=== PATIENT | female | born 1945 | race Caucasian/White ===

== ENCOUNTER 2018-11-27 23:33 | Inpatient (IN) ==
--- NOTE | 2018-11-28 01:54 | DR.GENAD ---
HPI Time Seen Time Seen by Provider: 11/28/18 01:53 PCP Primary Care Physician: SAMUEL HPI Comment HPI Comment: PATIENT IS 72YR OLD PATIENT OF DR. BUCHANAN IN IS IN EMERGENCY ROOM FOR AMS AND INCREASING SOB. PATIENT HAVE HISTORY OF COPD, FIBROMYALGIA AND HY PERTENSION ON CHRONIC PAIN MANAGEMENT AND STARTED HOSPICE PROGRAM THIS PAST THUSDAY. CAME TO ED TONIGHT LEAVING HOSPICE FOR MANAGEMENT OF AMS AND COPD. SHE IS ALSO NOTED TO HAVE LICE IN HER HAIR. SHE DENIED FEVER. HAVE COUGH, NON PRODUCTVE. FAMILY STATED PATIENT IS UNABLE TO CARE FOR HERSELF. SHE WAS CONFUSE TODAY BEFORE COMING TO ED. Complaint/Symptoms Chief Complaint Doctors Comments: AMS, SOB. 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 AND SHE WANTS IT THAT WAY. Self Treatment fo Chief Complaint: PT NOTED TO BE POOR IN APPEARANCE AND CAN VISIBLY SEE LARGE LICE CRAWLING AROUND IN HAIR Nurses notes reviewed Nurses Notes Review: Yes Source History Provided: Patient Mode of Arrival Mode of Arrival: Wheelchair Timing Onset of Chief Complaint: 11/27/18 Came on: Suddenly Duration Duration: Constant Duration: Weeks Severity Severity: Moderate PMH PMH Past Medical History: Yes Past Medical History: COPD and Hypertension Past Surgical History: Yes Surgical History: Appendectomy, Cholecystectomy and Hysterectomy Family History History of Family Medical Conditions: No Social History Does patient currently use any type of tobacco product: Yes Have you used tobacco products in the last 12 months: Yes Type of Tobacco Use: Cigarettes Does any household member use tobacco: No Alcohol Use: None Do you use any recreational Drugs:: No Lives With: Alone Lives Where: Home infectious screening In the last 2 months have you had wt loss of >10#?: NO Have you had fever, night sweats or hemotysis?: No Have you traveled outside the country in the last 6 months?: No Isolation: Standard ROS Review of Systems Constitutional: No Symptoms Reported, See HPI, Weakness and Fatigue; negative Chills, Fever and Malaise Eyes: See HPI; negative Eye Pain ENTM: Nose Congestion; negative Nose Discharge and Throat Pain Respiratoy: See HPI, Non-Productive Cough, Short of Breath and Wheezing Cardiovascular: See HPI and Chest Pain; negative Edema and Palpitations Gastrointestinal/Abdominal: See HPI; negative Abdominal Pain, Constipation, Diarrhea, Nausea and Vomiting Genitourinary: See HPI; negative Dysuria, Hematuria and Bleeding Neurological: See HPI, Headache and Weakness; negative Dizziness Musculoskeletal: See HPI, Back Pain and Muscle Pain; negative Neck Pain Integumentary: See HPI, Dryness and Rash; negative Change in Color and Juandice Hematologic/Lymphatic: No Symptoms Reported and See HPI; negative Easy Bruising, Swollen Glands and Lymphadenopathy Endocrine: See HPI and Decreased Appetite; negative Increased Thirst and Increased Urine Psychiatric: No Symptoms Reported and See HPI; negative Hallucinations All Other Systems: Reviewed and Negative Unable to Obtain Due To: Altered mental status PE Vital Signs Vitals: Temperature 98.0 F Pulse Rate [Left Brachial] 72 Pulse Rate 86 Respiratory Rate 16 Blood Pressure [Left Arm] 160/95 Blood Pressure 159/95 O2 Sat by Pulse Oximetry 97 General Limitations: Altered Mental Status General Appearance: Alert and In Distress Head Head Exam: Normal Inspection, Atraumatic and Other (LICE NOTED IN PATIENTS HAIR.) Eyes Eye exam: Normal Appearance, PERRL and EOMI; negative Scleral Icterus and Conjunctival Injection ENT ENT Exam: negative Normal Oropharynx, Normal External Ear Exam and Mucous Membranes Moist External Ear Exam: Normal External Inspection; negative Mastoid Tenderness, Pain with Movement and External Tenderness TM/Canal Exam: Bilateral: Normal Nose Exam: Normal Nose Exam; negative Sinus Tenderness, Nasal Deviation and Septal Hematoma Mouth Exam: Normal Inspection; negative Lip Swelling and Tongue Swelling Throat Exam: Normal Inspection; negative Tonsillar Erythema, Tonsillomegaly and Tonsillar Exudate Neck Neck Exam: Normal Inspection and Trachea Midline; negative Tenderness and Lymphadenopathy Chest Chest Inspection: Normal Inspection and Symmetric Chest Wall Rise; negative Tenderness Respiratory Respiratory Exam: Accessory Muscle Use and Respiratory Distress; negative Chest Wall Tenderness Respiratory Exam: Bilateral: Wheezing and Bilateral: Rhonchi, Upper: Wheezing and Lower: Wheezing and Lower: Rhonchi Cardiovascular Cardiovascular Exam: Regular Rate, Normal Rhythm and Normal Heart Sounds; negative Tachycardia and Irregular Rhythm Abdominal Exam Abdominal Exam: Normal Bowel Sounds, Soft and Tenderness Extremities Extremities Exam: Normal Inspection Back Back Exam: Paraspinal Tenderness; negative Tenderness and (L) CVA Tenderness Neurologic Neurological Exam: Alert and Oriented X3 Psychiatric Psychiatric Exam: Normal Affect and Normal Mood Skin Skin Exam: Warm, Dry, Intact and Normal Color MDM Additional Information Additional Information Obtained From: Old Records (REVIEWED RECORD FROM [facility] IN [place].) and Family Differential Diagnosis Differential Diagnosis: AMS. PNEUMONIA, BRONCHITIS, UTI, FIBROMYALGIA, COPD, LICE INFESTATION COURSE Treatment Treatment: SEE ORDERS. Consultation Consultation Comments: DISCUSS PATIENT WITH DR. ASHRAF. HE WILL ADMIT PATIENT. Education/Counseling Education/Counseling: Patient and Family Educated On: Diagnosis ROR Labs Reviewed Laboratory Results Reviewed?: Yes Result Diagrams: 11/28/18 02:38 11/28/18 02:38 Laboratory: WBC 4.6 X10^3/uL (3.6-10.0) 11/28/18 02:38 RBC 4.15 X10^6/uL (3.5-5.4) 11/28/18 02:38 Hgb 13.8 g/dL (12.0-16.0) 11/28/18 02:38 Hct 40.2 % (36.0-47.0) 11/28/18 02:38 MCV 96.9 fL (80.0-100.0) 11/28/18 02:38 MCH 33.3 pg (27.0-34.0) 11/28/18 02:38 MCHC 34.4 g/dL (33.0-35.0) 11/28/18 02:38 RDW 13.4 % (11.6-16.5) 11/28/18 02:38 Plt Count 323 X10^3/uL (150.0-450.0) 11/28/18 02:38 MPV 6.9 fL (7.4-11.0) L 11/28/18 02:38 Neut % (Auto) 69.7 % (42.0-75.0) 11/28/18 02:38 Lymph % (Auto) 17.9 % (21.0-51.0) L 11/28/18 02:38 [place] % (Auto) 8.1 % (0.0-13.0) 11/28/18 02:38 Eos % (Auto) 2.6 % (0.9-2.9) 11/28/18 02:38 Baso % (Auto) 1.7 % (0.2-1.0) H 11/28/18 02:38 Neut # (Auto) 3.2 x10^3/uL (2.2-4.8) 11/28/18 02:38 Lymph # (Auto) 0.8 X10^3/uL (1.3-2.9) L 11/28/18 02:38 [place] # (Auto) 0.4 x10^3/uL (0.3-0.8) 11/28/18 02:38 Eos # (Auto) 0.1 x10^3/uL (0.0-0.2) 11/28/18 02:38 Baso # (Auto) 0.1 X10^3/uL (0.0-0.1) 11/28/18 02:38 Absolute Nucleated RBC 0.2 /100WBC 11/28/18 02:38 Sodium 134 mmol/L (136-145) L 11/28/18 02:38 Corrected Sodium TNP 11/28/18 02:38 Potassium 3.9 mmol/L (3.5-5.1) 11/28/18 02:38 Chloride 96 mmol/L (98-107) L 11/28/18 02:38 Carbon Dioxide 26.4 mmol/L (21-32) 11/28/18 02:38 BUN 25 mg/dL (7-18) H 11/28/18 02:38 Creatinine 0.76 mg/dL (0.55-1.02) 11/28/18 02:38 Est GFR (MDRD) Af Amer > 60 (>60) 11/28/18 02:38 Est GFR (MDRD) Non-Af > 60 (>60) 11/28/18 02:38 Glucose 86 mg/dL (65-99) 11/28/18 02:38 Calcium 9.8 mg/dL (8.5-10.1) 11/28/18 02:38 Corrected Calcium TNP 11/28/18 02:38 Total Bilirubin 0.50 mg/dL (0.2-1.0) 11/28/18 02:38 AST 23 Units/L (15-37) 11/28/18 02:38 ALT 18 Units/L (12-78) 11/28/18 02:38 Alkaline Phosphatase 106 Units/L (46-116) 11/28/18 02:38 Creatine Kinase 119 Units/L (26-192) 11/28/18 02:38 CK-MB (CK-2) 5.5 ng/mL (0-4.0) H* 11/28/18 02:38 CK/CKMB % Calc 4.6 % (<4) 11/28/18 02:38 Troponin I < 0.02 ng/mL (0-1.5) 11/28/18 02:38 Total Protein 8.3 g/dL (6.4-8.2) H 11/28/18 02:38 Albumin 4.0 g/dL (3.4-5.0) 11/28/18 02:38 Globulin 4.3 g/dL (2.5-4.5) 11/28/18 02:38 Albumin/Globulin Ratio 0.9 Ratio (1.1-2.1) L 11/28/18 02:38 Specimen Type Clean catch urine 11/28/18 02:46 Urine Color Dark yellow (YELLOW) 11/28/18 02:46 Urine Appearance Clear (CLEAR) 11/28/18 02:46 Urine pH 5.0 (5.0 - 8.0) 11/28/18 02:46 Ur Specific [place] 1.025 (1.000-1.030) 11/28/18 02:46 Urine Protein 3+ (NEGATIVE) 11/28/18 02:46 Urine Glucose (UA) Negative (NEGATIVE) 11/28/18 02:46 Urine Ketones 3+ (NEGATIVE) 11/28/18 02:46 Urine Occult Blood 1+ (NEGATIVE) 11/28/18 02:46 Urine Nitrite Negative (NEGATIVE) 11/28/18 02:46 Urine Bilirubin Negative (NEGATIVE) 11/28/18 02:46 Urine Urobilinogen Normal (NORMAL) 11/28/18 02:46 Ur Leukocyte Esterase Negative (NEGATIVE) 11/28/18 02:46 Urine RBC 0-2 /HPF (NONE SEEN) 11/28/18 02:46 Urine WBC 0-2 /HPF (NONE SEEN) 11/28/18 02:46 Ur Squamous Epith Cells Rare /HPF (NEGATIVE) 11/28/18 02:46 Urine Bacteria Negative /HPF (NEGATIVE) 11/28/18 02:46 Hyaline Casts Few /LPF (NEGATIVE) 11/28/18 02:46 Urine Mucus Few /HPF (NEGATIVE) 11/28/18 02:46 Ur Culture Indicated? No/not indicated 11/28/18 02:46 XRAY XRAY Interpreted by: Radiologist XRAY Findings: REPORT NOTED AND DISCUSS WITH PATIENT AND FAMILY. Opioid Opioid Risk Tool Total: 0 Total Score Risk Category: Low Risk Copyright: Aniceto LEWIS predicting aberrant behaviors Diagnosis Discharge Problem: COPD exacerbation, Lice infestation Altered mental status Qualifiers: Altered mental status type: transient alteration of awareness Qualified Code(s): R40.4 - Transient alteration of awareness Instructions Forms: Excuse From Work
[2018-11-28 02:51] LABS: BASOPHILS # (AUTO) 0.1 X10^3/uL (0.0-0.1); BASOPHILS % (AUTO) 1.7 % (0.2-1.0); EOSINOPHILS # (AUTO) 0.1 x10^3/uL (0.0-0.2); EOSINOPHILS % (AUTO) 2.6 % (0.9-2.9); HEMATOCRIT 40.2 % (36.0-47.0); HEMOGLOBIN 13.8 g/dL (12.0-16.0); LYMPHOCYTES # (AUTO) 0.8 X10^3/uL (1.3-2.9); LYMPHOCYTES % (AUTO) 17.9 % (21.0-51.0); MEAN CORPUSCULAR HEMOGLOBIN 33.3 pg (27.0-34.0); MEAN CORPUSCULAR HGB CONC 34.4 g/dL (33.0-35.0); MEAN CORPUSCULAR VOLUME 96.9 fL (80.0-100.0); MEAN PLATELET VOLUME 6.9 fL (7.4-11.0); MONOCYTES # (AUTO) 0.4 x10^3/uL (0.3-0.8); MONOCYTES % (AUTO) 8.1 % (0.0-13.0); NEUTROPHILS # (AUTO) 3.2 x10^3/uL (2.2-4.8); NEUTROPHILS % (AUTO) 69.7 % (42.0-75.0); PLATELET COUNT 323 X10^3/uL (150.0-450.0); RED BLOOD COUNT 4.15 X10^6/uL (3.5-5.4); RED CELL DISTRIBUTION WIDTH 13.4 % (11.6-16.5); WHITE BLOOD COUNT 4.6 X10^3/uL (3.6-10.0)
[2018-11-28 02:52] LABS: BILIRUBIN,URINE NEGATIVE (NEGATIVE); BLOOD/HEMOGLOBIN,URINE 1+ (NEGATIVE); GLUCOSE, URINE NEGATIVE (NEGATIVE); KETONES,URINE 3+ (NEGATIVE); LEUKOCYTE ESTERASE ,URINE NEGATIVE (NEGATIVE); NITRITES,URINE NEGATIVE (NEGATIVE); PROTEIN,URINE 3+ (NEGATIVE); UROBILINOGEN,URINE NORMAL (NORMAL)
[2018-11-28 03:01] LABS: ALANINE AMINOTRANSFERASE 18 Units/L (12-78); ALKALINE PHOSPHATASE 106 Units/L (46-116); ASPARTATE AMINO TRANSFERASE 23 Units/L (15-37); BLOOD UREA NITROGEN 25 mg/dL (7-18); CALCIUM 9.8 mg/dL (8.5-10.1); CARBON DIOXIDE 26.4 mmol/L (21-32); CHLORIDE 96 mmol/L (98-107); CREATININE 0.76 mg/dL (0.55-1.02); SODIUM 134 mmol/L (136-145); TOTAL PROTEIN 8.3 g/dL (6.4-8.2); eGFR NON BLACK RACES > 60 (>60)
[2018-11-28 03:02] LABS: APPEARANCE,URINE CLEAR (CLEAR); BACTERIA,URINE NEGATIVE /HPF (NEGATIVE); COLOR,URINE DARK YELLOW (YELLOW); HYALINE CASTS, URINE FEW /LPF (NEGATIVE); MUCUS,URINE FEW /HPF (NEGATIVE); RBC,URINE 0-2 /HPF (NONE SEEN); SQUAMOUS EPITHELIAL CELL,UR RARE /HPF (NEGATIVE)
--- NOTE | 2018-11-28 03:08 | CT ---
HISTORY: Altered mental status Study: CT brain without contrast Comparison: None available Technique: Multiple axial images of the brain were obtained from the skull base to the vertex without administration of IV contrast. Coronal and sagittal reformations are obtained. Findings: There is age-appropriate cerebral atrophy. Moderate multifocal areas of hypoattenuation throughout the periventricular and subcortical white matter are compatible with small vessel ischemic disease. This limits evaluation for acute ischemic infarct, though no definite acute infarct is identified. There is no acute intracranial hemorrhage. No extra-axial fluid collection is identified. Calvarium and extracalvarial soft tissues are within normal limits. Orbits are unremarkable. Skull base is unremarkable. IMPRESSION: Age-appropriate cerebral atrophy and moderate chronic small vessel ischemic disease. Microangiopathy changes limit evaluation for acute ischemic infarct. If there is clinical concern for stroke, consider MRI for more sensitive assessment. No acute intracranial hemorrhage. Reported By:
[2018-11-28 04:18] LABS: CKMB % 4.6 % (<4); CREATINE KINASE 119 Units/L (26-192); TROPONIN I < 0.02 ng/mL (0-1.5)
[2018-11-28 04:19] LABS: CREATINE KINASE MB 5.5 ng/mL (0-4.0)
--- NOTE | 2018-11-28 07:56 | RAD ---
HISTORY: Dyspnea Study: Chest AP portable Comparison: None Findings: The heart is within normal limits in size. The aorta is mildly ectatic. The nicolasa are normal. The lungs are well inflated and free of acute infiltrates. No pleural effusions are identified. The bony thorax is unremarkable. IMPRESSION: Lungs clear Reported By:
[2018-11-28] MEDS: NIX CREME RINSE EXT SCH (09:30)
[2018-11-28] MEDS ORDERED: NORCO 10/325 TAB PO PRN (11:39)
[2018-11-28] MEDS ORDERED: DUONEB 0.5 MG/3 MG IN PRN (11:39)
[2018-11-28] MEDS: NS 1000 ML 1,000 ML IV SCH ×2 (12:00→23:29)
[2018-11-28] MEDS: XANAX PO SCH (12:00)
[2018-11-28] MEDS ORDERED: PHENERGAN TAB 25 MG PO PRN (12:17)
[2018-11-28 12:18] LABS: CKMB % 4.3 % (<4); CREATINE KINASE 112 Units/L (26-192); TROPONIN I < 0.02 ng/mL (0-1.5)
[2018-11-28] MEDS: DUONEB 0.5 MG/3 MG NEB SCH ×2 (12:20→18:30)
[2018-11-28 12:23] LABS: CREATINE KINASE MB 4.8 ng/mL (0-4.0)
[2018-11-28] MEDS: MOBIC TAB 15 MG PO SCH (12:48)
[2018-11-28] MEDS: SYNTHROID 75 mcg TAB PO SCH (12:48)
[2018-11-28] MEDS: FLEXERIL TAB 10 MG PO SCH ×2 (12:48→20:57)
[2018-11-28] MEDS: NEURONTIN CAP 400 MG PO SCH ×4 (12:49→20:57)
[2018-11-28] MEDS: ELAVIL PO SCH (12:49)
--- NOTE | 2018-11-28 13:05 | RAD ---
HISTORY: Abdomen pain. Prior history of appendectomy, cholecystectomy and hysterectomy. Study: KUB Comparison: No priors Findings: There is large amount of stool present extending from the cecum to the mid descending colon. No significant rectosigmoid stool is present. Very slight increase in small bowel gas is present dense bowel obstruction. There are surgical clips present in the left pelvis. There is moderate degenerative change and scoliosis involving the lumbar spine no opaque stone is seen. Lung bases are clear. No acute osseous changes are identified. IMPRESSION: Right colon stool and mild small bowel ileus pattern. No bowel obstruction is seen. Reported By:
[2018-11-28] MEDS ORDERED: SALINE 3% 15 ML NEB TX NEB ONE (15:16)
[2018-11-28 17:27] LABS: CKMB % 3.3 % (<4); CREATINE KINASE 115 Units/L (26-192); CREATINE KINASE MB 3.8 ng/mL (0-4.0); TROPONIN I < 0.02 ng/mL (0-1.5)
[2018-11-29] MEDS: DUONEB 0.5 MG/3 MG NEB SCH ×5 (01:09→18:26)
[2018-11-29 05:47] LABS: BASOPHILS # (AUTO) 0.1 X10^3/uL (0.0-0.1); BASOPHILS % (AUTO) 1.4 % (0.2-1.0); EOSINOPHILS # (AUTO) 0.3 x10^3/uL (0.0-0.2); EOSINOPHILS % (AUTO) 4.7 % (0.9-2.9); HEMATOCRIT 35.6 % (36.0-47.0); HEMOGLOBIN 12.3 g/dL (12.0-16.0); LYMPHOCYTES # (AUTO) 1.6 X10^3/uL (1.3-2.9); LYMPHOCYTES % (AUTO) 25.1 % (21.0-51.0); MEAN CORPUSCULAR HEMOGLOBIN 33.8 pg (27.0-34.0); MEAN CORPUSCULAR HGB CONC 34.4 g/dL (33.0-35.0); MEAN PLATELET VOLUME 7.3 fL (7.4-11.0); MONOCYTES # (AUTO) 0.6 x10^3/uL (0.3-0.8); MONOCYTES % (AUTO) 9.5 % (0.0-13.0); NEUTROPHILS # (AUTO) 3.8 x10^3/uL (2.2-4.8); NEUTROPHILS % (AUTO) 59.3 % (42.0-75.0); PLATELET COUNT 299 X10^3/uL (150.0-450.0); RED BLOOD COUNT 3.63 X10^6/uL (3.5-5.4); RED CELL DISTRIBUTION WIDTH 13.9 % (11.6-16.5); WHITE BLOOD COUNT 6.4 X10^3/uL (3.6-10.0)
[2018-11-29 06:05] LABS: ALANINE AMINOTRANSFERASE 15 Units/L (12-78); ALBUMIN 3.3 g/dL (3.4-5.0); ALKALINE PHOSPHATASE 83 Units/L (46-116); ASPARTATE AMINO TRANSFERASE 22 Units/L (15-37); BLOOD UREA NITROGEN 25 mg/dL (7-18); CALCIUM 8.6 mg/dL (8.5-10.1); CARBON DIOXIDE 26.1 mmol/L (21-32); CHLORIDE 103 mmol/L (98-107); COR CA(FOR HYPOALB) 9.2 mg/dL (8.5-10.1); CREATININE 0.91 mg/dL (0.55-1.02); SODIUM 139 mmol/L (136-145); TOTAL PROTEIN 6.8 g/dL (6.4-8.2); eGFR NON BLACK RACES > 60 (>60)
[2018-11-29] MEDS ORDERED: PHARMACY CONSULT - DOSE _____ XX SCH (09:00)
[2018-11-29] MEDS: SYNTHROID 75 mcg TAB PO SCH (09:20)
[2018-11-29] MEDS: XANAX PO SCH (09:20)
[2018-11-29] MEDS: ELAVIL PO SCH (09:20)
[2018-11-29] MEDS: MOBIC TAB 15 MG PO SCH (09:20)
[2018-11-29] MEDS: NEURONTIN CAP 400 MG PO SCH ×4 (09:20→21:11)
[2018-11-29] MEDS: FLEXERIL TAB 10 MG PO SCH ×2 (09:21→21:11)
[2018-11-29] MEDS: NIX CREME RINSE EXT SCH (17:48)
[2018-11-30] MEDS: DUONEB 0.5 MG/3 MG NEB SCH ×4 (00:25→18:11)
[2018-11-30 07:30] VITALS: BMI 19.8
[2018-11-30] MEDS: NEURONTIN CAP 400 MG PO SCH ×4 (08:35→21:40)
[2018-11-30] MEDS: SYNTHROID 75 mcg TAB PO SCH (08:39)
[2018-11-30] MEDS: XANAX PO SCH (08:40)
[2018-11-30] MEDS: LINZESS PO SCH (08:40)
[2018-11-30] MEDS: MOBIC TAB 15 MG PO SCH (08:40)
[2018-11-30] MEDS: ELAVIL PO SCH (08:40)
[2018-11-30] MEDS: FLEXERIL TAB 10 MG PO SCH (08:40)
[2018-11-30] MEDS ORDERED: SYNTHROID 50 mcg TAB PO ONE (10:51)
[2018-11-30] MEDS: NIX CREME RINSE EXT SCH (11:47)
[2018-11-30] MEDS: NS 1000 ML 1,000 ML IV SCH (11:47)
[2018-11-30] MEDS: COLACE CAP 100 MG PO SCH ×2 (12:00→21:41)
[2018-11-30] MEDS: NORCO 10/325 TAB PO PRN (21:40)
[2018-12-01] MEDS: DUONEB 0.5 MG/3 MG NEB SCH ×4 (00:45→17:53)
[2018-12-01] MEDS: NS 1000 ML 1,000 ML IV SCH ×3 (03:59→16:19)
[2018-12-01 05:45] LABS: BASOPHILS # (AUTO) 0.1 X10^3/uL (0.0-0.1); BASOPHILS % (AUTO) 2.1 % (0.2-1.0); EOSINOPHILS # (AUTO) 0.7 x10^3/uL (0.0-0.2); EOSINOPHILS % (AUTO) 13.5 % (0.9-2.9); HEMATOCRIT 29.9 % (36.0-47.0); LYMPHOCYTES # (AUTO) 1.5 X10^3/uL (1.3-2.9); LYMPHOCYTES % (AUTO) 28.4 % (21.0-51.0); MEAN CORPUSCULAR HEMOGLOBIN 33.9 pg (27.0-34.0); MEAN CORPUSCULAR HGB CONC 34.4 g/dL (33.0-35.0); MEAN CORPUSCULAR VOLUME 98.6 fL (80.0-100.0); MEAN PLATELET VOLUME 7.1 fL (7.4-11.0); MONOCYTES # (AUTO) 0.5 x10^3/uL (0.3-0.8); MONOCYTES % (AUTO) 9.1 % (0.0-13.0); NEUTROPHILS # (AUTO) 2.5 x10^3/uL (2.2-4.8); NEUTROPHILS % (AUTO) 46.9 % (42.0-75.0); PLATELET COUNT 235 X10^3/uL (150.0-450.0); RED BLOOD COUNT 3.03 X10^6/uL (3.5-5.4); RED CELL DISTRIBUTION WIDTH 13.5 % (11.6-16.5); WHITE BLOOD COUNT 5.4 X10^3/uL (3.6-10.0)
[2018-12-01 05:52] LABS: HEMOGLOBIN 10.3 g/dL (12.0-16.0)
[2018-12-01 06:10] LABS: ALANINE AMINOTRANSFERASE 14 Units/L (12-78); ALBUMIN 2.7 g/dL (3.4-5.0); ALKALINE PHOSPHATASE 72 Units/L (46-116); ASPARTATE AMINO TRANSFERASE 15 Units/L (15-37); BLOOD UREA NITROGEN 11 mg/dL (7-18); CALCIUM 7.9 mg/dL (8.5-10.1); CARBON DIOXIDE 26.3 mmol/L (21-32); CHLORIDE 106 mmol/L (98-107); COR CA(FOR HYPOALB) 8.9 mg/dL (8.5-10.1); CREATININE 0.69 mg/dL (0.55-1.02); SODIUM 141 mmol/L (136-145); TOTAL PROTEIN 5.6 g/dL (6.4-8.2); eGFR NON BLACK RACES > 60 (>60)
--- NOTE | 2018-12-01 06:22 | RAD ---
HISTORY: Follow-up ileus Study: Flat and upright abdomen, PA chest Comparison: 11/28/2018 Findings: The heart is within normal limits in size. The aorta is ectatic. The nicolasa are normal. The lung sellers are clear. The abdominal gas pattern is nonspecific and nonobstructive. There is a large amount of stool in the right colon. No pneumoperitoneum is identified. No abnormal masses or abnormal calcifications are identified. IMPRESSION: Lungs clear Nonspecific, nonobstructive bowel gas pattern Large amount of stool in the right colon Reported By:
[2018-12-01] MEDS: MOBIC TAB 15 MG PO SCH (08:53)
[2018-12-01] MEDS: COLACE CAP 100 MG PO SCH ×2 (08:53→21:15)
[2018-12-01] MEDS: LINZESS PO SCH (08:53)
[2018-12-01] MEDS: NEURONTIN CAP 400 MG PO SCH ×4 (08:53→21:14)
[2018-12-01] MEDS: SYNTHROID 125 mcg TAB PO SCH ×2 (12:04→16:12)
[2018-12-01] MEDS ORDERED: CITROMA PO ONE (12:19)
[2018-12-01] MEDS ORDERED: COLACE CAP 100 MG PO ONE (12:20)
[2018-12-01] MEDS: NORCO 10/325 TAB PO PRN (16:58)
[2018-12-01] MEDS: NICOTINE PATCH TD SCH (18:17)
[2018-12-01] MEDS: NORCO 5/325 MG TAB PO PRN (21:14)
[2018-12-01] MEDS: CHECK PATCH XX SCH (21:18)
[2018-12-02] MEDS: DUONEB 0.5 MG/3 MG NEB SCH ×4 (00:16→17:19)
[2018-12-02] MEDS: NS 1000 ML 1,000 ML IV SCH ×3 (01:59→16:27)
[2018-12-02] MEDS ORDERED: K-RIDER 10 MEQ/NS 100 ML 10 MEQ/100 ML BAG IV PRN (05:45)
[2018-12-02] MEDS ORDERED: KLOR-CON PO PRN (05:45)
[2018-12-02] MEDS ORDERED: POTASSIUM CHL 60 MEQ/NS 0.45% 500 ML IV PRN (05:45)
[2018-12-02] MEDS ORDERED: K-DUR TAB 20 MEQ PO PRN (05:45)
[2018-12-02] MEDS ORDERED: POTASSIUM CHLORIDE LIQ 20 MEQ UDC PO PRN (05:45)
[2018-12-02] MEDS ORDERED: MICRO K EXTEN CAP 10 MEQ PO PRN (05:45)
[2018-12-02] MEDS ORDERED: POTASSIUM CHL 40 MEQ/NS 0.45% 500 ML IV PRN (05:45)
[2018-12-02] MEDS: NORCO 5/325 MG TAB PO PRN ×3 (07:13→21:31)
[2018-12-02] MEDS: CHECK PATCH XX SCH ×2 (08:02→21:33)
[2018-12-02] MEDS: MOBIC TAB 15 MG PO SCH (08:02)
[2018-12-02] MEDS: NEURONTIN CAP 400 MG PO SCH ×4 (08:02→21:30)
[2018-12-02] MEDS: NICOTINE PATCH TD SCH (08:02)
[2018-12-02] MEDS: COLACE CAP 100 MG PO SCH ×2 (08:02→21:32)
[2018-12-02] MEDS: LINZESS PO SCH (08:02)
[2018-12-02] MEDS: MAGNESIUM SULFATE 1 GRAM/100 mL PREMIX 1 GM/100 ML BAG IV PRN ×2 (09:11→10:46)
[2018-12-02] MEDS: SYNTHROID 125 mcg TAB PO SCH (16:27)
[2018-12-02] MEDS: XANAX PO PRN ×2 (21:31→21:32)
[2018-12-03] MEDS: DUONEB 0.5 MG/3 MG NEB SCH ×5 (00:21→17:10)
[2018-12-03 06:16] LABS: BASOPHILS # (AUTO) 0.1 X10^3/uL (0.0-0.1); BASOPHILS % (AUTO) 1.4 % (0.2-1.0); EOSINOPHILS # (AUTO) 0.9 x10^3/uL (0.0-0.2); HEMATOCRIT 32.4 % (36.0-47.0); HEMOGLOBIN 11.1 g/dL (12.0-16.0); LYMPHOCYTES # (AUTO) 1.2 X10^3/uL (1.3-2.9); LYMPHOCYTES % (AUTO) 22.5 % (21.0-51.0); MEAN CORPUSCULAR HEMOGLOBIN 33.3 pg (27.0-34.0); MEAN CORPUSCULAR HGB CONC 34.1 g/dL (33.0-35.0); MEAN CORPUSCULAR VOLUME 97.6 fL (80.0-100.0); MEAN PLATELET VOLUME 6.9 fL (7.4-11.0); MONOCYTES # (AUTO) 0.4 x10^3/uL (0.3-0.8); MONOCYTES % (AUTO) 7.2 % (0.0-13.0); NEUTROPHILS # (AUTO) 2.8 x10^3/uL (2.2-4.8); NEUTROPHILS % (AUTO) 52.9 % (42.0-75.0); PLATELET COUNT 257 X10^3/uL (150.0-450.0); RED BLOOD COUNT 3.32 X10^6/uL (3.5-5.4); RED CELL DISTRIBUTION WIDTH 13.6 % (11.6-16.5); WHITE BLOOD COUNT 5.4 X10^3/uL (3.6-10.0)
[2018-12-03 06:26] LABS: ALANINE AMINOTRANSFERASE 14 Units/L (12-78); ALBUMIN 2.9 g/dL (3.4-5.0); ALKALINE PHOSPHATASE 84 Units/L (46-116); ASPARTATE AMINO TRANSFERASE 17 Units/L (15-37); BLOOD UREA NITROGEN 11 mg/dL (7-18); CALCIUM 8.4 mg/dL (8.5-10.1); CARBON DIOXIDE 30.7 mmol/L (21-32); CHLORIDE 104 mmol/L (98-107); COR CA(FOR HYPOALB) 9.3 mg/dL (8.5-10.1); CREATININE 0.59 mg/dL (0.55-1.02); MAGNESIUM 2.1 mg/dL (1.7-2.9); SODIUM 138 mmol/L (136-145); TOTAL PROTEIN 6.2 g/dL (6.4-8.2); eGFR NON BLACK RACES > 60 (>60)
[2018-12-03] MEDS: NS 1000 ML 1,000 ML IV SCH (06:32)
--- NOTE | 2018-12-03 07:22 | RAD ---
KUB Clinical indication: Ileus, fecal retention Findings: Single supine radiograph of the abdomen performed. The lung bases are clear. Scattered bowel gas is demonstrated within aspects of the large and small bowel without features of obstruction. The cecum and ascending colon demonstrate a large amount of retained fecal debris. There are no convincing signs of free air on this supine radiograph. No suspicious calcifications. Incidental note is made of multilevel degenerative disc disease and spondylosis associated with mild scoliotic curvature Impression: A stable bowel gas pattern featuring a large amount of concentrated stool within the right colon, with nonobstructive pattern overall. No aggressively distended bowel segments otherwise noted Reported By:
[2018-12-03] MEDS: NICOTINE PATCH TD SCH (09:23)
[2018-12-03] MEDS: MOBIC TAB 15 MG PO SCH (09:23)
[2018-12-03] MEDS: NEURONTIN CAP 400 MG PO SCH ×3 (09:23→16:41)
[2018-12-03] MEDS: LINZESS PO SCH (09:23)
[2018-12-03] MEDS: COLACE CAP 100 MG PO SCH (09:26)
[2018-12-03] MEDS: CHECK PATCH XX SCH (09:26)
[2018-12-03] MEDS: NORCO 5/325 MG TAB PO PRN (12:52)
[2018-12-03] MEDS: XANAX PO PRN (12:53)
[2018-12-03 16:22] VITALS: BP 131/77
[2018-12-03] MEDS: SYNTHROID 125 mcg TAB PO SCH (16:39)
[2018-12-03] MEDS ORDERED: NORCO 5/325 MG TAB ONE (21:37)
[2018-12-03] MEDS ORDERED: COLACE CAP 100 MG PO ONE (21:37)
[2018-12-03] MEDS ORDERED: NEURONTIN CAP 400 MG ONE (21:37)
[2018-12-03] MEDS ORDERED: NS 1000 ML ONE (21:37)
[2018-12-04] MEDS ORDERED: MOBIC TAB 15 MG PO ONE (08:00)
[2018-12-04] MEDS ORDERED: XANAX PO ONE (08:00)
[2018-12-04] MEDS ORDERED: NEURONTIN CAP 400 MG PO ONE ×4 (08:00→20:00)
[2018-12-04] MEDS ORDERED: LINZESS PO ONE (08:00)
[2018-12-04] MEDS ORDERED: NICOTINE PATCH TD ONE (08:00)
[2018-12-04] MEDS ORDERED: COLACE CAP 100 MG PO ONE ×2 (08:00→10:30)
[2018-12-04] MEDS ORDERED: CITROMA PO ONE (10:30)
[2018-12-04] MEDS ORDERED: SYNTHROID 125 mcg TAB PO ONE (10:30)
[2018-12-04] MEDS ORDERED: NIX CREME RINSE EXT NR (11:00)
[2018-12-04] MEDS ORDERED: MIRALAX POWDER (1 DOSE 17 G) PO ONE (11:30)
[2018-12-04] MEDS ORDERED: DUONEB 0.5 MG/3 MG NEB ONE ×3 (12:05→17:00)
[2018-12-04] MEDS ORDERED: TOPROL XL PO ONE (14:30)
[2018-12-04] MEDS ORDERED: NS 1000 ML IV ONE (15:00)
[2018-12-04] MEDS ORDERED: NORCO 5/325 MG TAB PO ONE (20:00)
[2018-12-05] MEDS ORDERED: NEURONTIN CAP 400 MG PO ONE ×4 (09:00→17:00)
[2018-12-05] MEDS ORDERED: COLACE CAP 100 MG PO ONE (09:00)
[2018-12-05] MEDS ORDERED: MOBIC TAB 15 MG PO ONE (09:00)
[2018-12-05] MEDS ORDERED: TOPROL XL PO ONE (09:00)
[2018-12-05] MEDS ORDERED: NICOTINE PATCH TD ONE (09:00)
[2018-12-05] MEDS ORDERED: SYNTHROID 125 mcg TAB PO ONE (16:30)
[2018-12-06] MEDS ORDERED: MOBIC TAB 15 MG PO ONE (09:00)
[2018-12-06] MEDS ORDERED: NICOTINE PATCH ONE (09:00)
[2018-12-06] MEDS ORDERED: TOPROL XL ONE (09:00)
[2018-12-11 10:31] LABS: BLOOD UREA NITROGEN 14 mg/dL (7-18); CALCIUM 7.8 mg/dL (8.5-10.1); CARBON DIOXIDE 30.1 mmol/L (21-32); CHLORIDE 104 mmol/L (98-107); CREATININE 0.65 mg/dL (0.55-1.02); SODIUM 140 mmol/L (136-145); eGFR NON BLACK RACES > 60 (>60)
[2018-12-11 10:32] LABS: ALANINE AMINOTRANSFERASE 18 Units/L (12-78); ALBUMIN 2.8 g/dL (3.4-5.0); ALKALINE PHOSPHATASE 90 Units/L (46-116); ASPARTATE AMINO TRANSFERASE 22 Units/L (15-37); COR CA(FOR HYPOALB) 8.8 mg/dL (8.5-10.1); HEMOGLOBIN 10.7 g/dL (12.0-16.0); MEAN CORPUSCULAR VOLUME 98.4 fL (80.0-100.0); RED BLOOD COUNT 3.15 X10^6/uL (3.5-5.4); WHITE BLOOD COUNT 6.5 X10^3/uL (3.6-10.0)
[2018-12-11 10:33] LABS: BASOPHILS # (AUTO) 0.1 X10^3/uL (0.0-0.1); BASOPHILS % (AUTO) 1.2 % (0.2-1.0); EOSINOPHILS # (AUTO) 0.8 x10^3/uL (0.0-0.2); EOSINOPHILS % (AUTO) 11.7 % (0.9-2.9); LYMPHOCYTES # (AUTO) 1.5 X10^3/uL (1.3-2.9); LYMPHOCYTES % (AUTO) 22.6 % (21.0-51.0); MEAN CORPUSCULAR HGB CONC 34.5 g/dL (33.0-35.0); MONOCYTES # (AUTO) 0.5 x10^3/uL (0.3-0.8); MONOCYTES % (AUTO) 7.8 % (0.0-13.0); NEUTROPHILS # (AUTO) 3.7 x10^3/uL (2.2-4.8); NEUTROPHILS % (AUTO) 56.7 % (42.0-75.0); PLATELET COUNT 267 X10^3/uL (150.0-450.0); RED CELL DISTRIBUTION WIDTH 13.9 % (11.6-16.5)
== END 2018-12-06 12:40 | disposition home or self-care (01) | DRG 644 ==
LOC: ER 23:33 → ICU 23:33 → MED/SURG 11-28 08:27
PROVIDERS: ADMIT Obstetrics & Gynecology Obstetrics; ATTEND Obstetrics & Gynecology Obstetrics
DX: K59.09 Other constipation; E03.8 Other specified hypothyroidism; R40.4 Transient alteration of awareness; R62.7 Adult failure to thrive; W18.39XA Other fall on same level, initial encounter; Z79.899 Other long term (current) drug therapy; R06.02 Shortness of breath; R94.31 Abnormal electrocardiogram [ECG] [EKG]; Y92.239 Unspecified place in hospital as the place of occurrence of the external cause; B85.0 Pediculosis due to Pediculus humanus capitis; I10 Essential (primary) hypertension; M79.7 Fibromyalgia; J44.1 Chronic obstructive pulmonary disease with (acute) exacerbation; K56.699 Other intestinal obstruction unspecified as to partial versus complete obstruction
CPT/HCPCS: 36415; 70450; 71010; 71045; 74000; 74018; 74022; 80053; 81001; 82550; 82553; 83735; 84132; 84443; 84484; 85025; 93005; 94640; 94760; 96365; 97110; 97116; 97162; 97166; 97530; 97535; 99284; A4222; G0378; J3475; J7030; J7620

== ENCOUNTER 2018-12-31 18:26 | Observation (INO) ==
[2018-12-31] MEDS ORDERED: NS 1000 ML 1,000 ML ONE (20:32)
[2018-12-31] MEDS ORDERED: NS 1000 ML 1,000 ML IV SCH (21:13)
[2018-12-31 21:42] LABS: BASOPHILS # (AUTO) 0.1 X10^3/uL (0.0-0.1); BASOPHILS % (AUTO) 1.8 % (0.2-1.0); EOSINOPHILS # (AUTO) 0.3 x10^3/uL (0.0-0.2); EOSINOPHILS % (AUTO) 4.5 % (0.9-2.9); HEMATOCRIT 38.2 % (36.0-47.0); HEMOGLOBIN 12.8 g/dL (12.0-16.0); LYMPHOCYTES # (AUTO) 1.7 X10^3/uL (1.3-2.9); LYMPHOCYTES % (AUTO) 29.4 % (21.0-51.0); MEAN CORPUSCULAR HEMOGLOBIN 32.9 pg (27.0-34.0); MEAN CORPUSCULAR HGB CONC 33.5 g/dL (33.0-35.0); MEAN CORPUSCULAR VOLUME 98.1 fL (80.0-100.0); MEAN PLATELET VOLUME 6.9 fL (7.4-11.0); MONOCYTES # (AUTO) 0.5 x10^3/uL (0.3-0.8); NEUTROPHILS # (AUTO) 3.2 x10^3/uL (2.2-4.8); NEUTROPHILS % (AUTO) 55.3 % (42.0-75.0); PLATELET COUNT 269 X10^3/uL (150.0-450.0); RED BLOOD COUNT 3.89 X10^6/uL (3.5-5.4); RED CELL DISTRIBUTION WIDTH 13.3 % (11.6-16.5); WHITE BLOOD COUNT 5.7 X10^3/uL (3.6-10.0)
[2018-12-31 21:48] LABS: ALANINE AMINOTRANSFERASE 8 Units/L (12-78); ALBUMIN 3.4 g/dL (3.4-5.0); ALKALINE PHOSPHATASE 110 Units/L (46-116); ASPARTATE AMINO TRANSFERASE 14 Units/L (15-37); BLOOD UREA NITROGEN 36 mg/dL (7-18); CALCIUM 8.9 mg/dL (8.5-10.1); CARBON DIOXIDE 28.5 mmol/L (21-32); CHLORIDE 101 mmol/L (98-107); COR NA(FOR HYPERGLY) 139 mmol/L (136-145); CREATININE 1.21 mg/dL (0.55-1.02); SODIUM 138 mmol/L (136-145); eGFR NON BLACK RACES 46 (>60)
[2018-12-31 23:07] VITALS: BMI 20.9
[2019-01-01 00:39] LABS: BILIRUBIN,URINE NEGATIVE (NEGATIVE); BLOOD/HEMOGLOBIN,URINE NEGATIVE (NEGATIVE); GLUCOSE, URINE NEGATIVE (NEGATIVE); KETONES,URINE NEGATIVE (NEGATIVE); LEUKOCYTE ESTERASE ,URINE 1+ (NEGATIVE); NITRITES,URINE POSITIVE (NEGATIVE); PROTEIN,URINE 1+ (NEGATIVE); UROBILINOGEN,URINE NORMAL (NORMAL)
[2019-01-01 00:50] LABS: APPEARANCE,URINE CLEAR (CLEAR); BACTERIA,URINE 2+ /HPF (NEGATIVE); COLOR,URINE PALE YELLOW (YELLOW); RBC,URINE NONE SEEN /HPF (NONE SEEN); SQUAMOUS EPITHELIAL CELL,UR RARE /HPF (NEGATIVE)
[2019-01-01] MEDS ORDERED: ROCEPHIN VIAL 1 GRAM ONE (01:22)
[2019-01-01] MEDS: ROCEPHIN VIAL 1 GRAM IVP SCH ×2 (01:30→09:47)
[2019-01-01 05:24] LABS: BASOPHILS # (AUTO) 0.1 X10^3/uL (0.0-0.1); BASOPHILS % (AUTO) 1.8 % (0.2-1.0); EOSINOPHILS # (AUTO) 0.3 x10^3/uL (0.0-0.2); EOSINOPHILS % (AUTO) 5.6 % (0.9-2.9); HEMATOCRIT 34.3 % (36.0-47.0); HEMOGLOBIN 11.5 g/dL (12.0-16.0); LYMPHOCYTES # (AUTO) 1.4 X10^3/uL (1.3-2.9); LYMPHOCYTES % (AUTO) 28.1 % (21.0-51.0); MEAN CORPUSCULAR HEMOGLOBIN 33.1 pg (27.0-34.0); MEAN CORPUSCULAR HGB CONC 33.6 g/dL (33.0-35.0); MEAN CORPUSCULAR VOLUME 98.4 fL (80.0-100.0); MEAN PLATELET VOLUME 7.6 fL (7.4-11.0); MONOCYTES # (AUTO) 0.5 x10^3/uL (0.3-0.8); MONOCYTES % (AUTO) 10.7 % (0.0-13.0); NEUTROPHILS # (AUTO) 2.7 x10^3/uL (2.2-4.8); NEUTROPHILS % (AUTO) 53.8 % (42.0-75.0); PLATELET COUNT 253 X10^3/uL (150.0-450.0); RED BLOOD COUNT 3.48 X10^6/uL (3.5-5.4); RED CELL DISTRIBUTION WIDTH 13.2 % (11.6-16.5)
[2019-01-01 05:42] LABS: ALANINE AMINOTRANSFERASE 7 Units/L (12-78); ALKALINE PHOSPHATASE 86 Units/L (46-116); ASPARTATE AMINO TRANSFERASE 13 Units/L (15-37); BLOOD UREA NITROGEN 33 mg/dL (7-18); CALCIUM 8.7 mg/dL (8.5-10.1); CARBON DIOXIDE 25.1 mmol/L (21-32); CHLORIDE 105 mmol/L (98-107); COR CA(FOR HYPOALB) 9.5 mg/dL (8.5-10.1); CREATININE 0.89 mg/dL (0.55-1.02); SODIUM 140 mmol/L (136-145); TOTAL PROTEIN 6.2 g/dL (6.4-8.2); eGFR NON BLACK RACES > 60 (>60)
--- NOTE | 2019-01-01 07:00 | RAD ---
HISTORY: Shortness of breath Study: Chest AP portable Comparison: 11/28/2018 Findings: The heart is within normal limits in size. The nicolasa are normal. The aorta is calcified and mildly ectatic. The lungs are hyperinflated but free of acute infiltrates. There is a small focus of density in the right lung apex which should be further evaluated with chest CT with contrast in order to entirely exclude a parenchymal nodule. No pleural effusions are identified. The bony thorax is unremarkable. IMPRESSION: Lungs hyperinflated but free of acute infiltrate Right apical density requiring further evaluation with chest CT with contrast Reported By:
--- NOTE | 2019-01-01 07:10 | CT ---
HISTORY: Altered mental status Study: CT head without contrast Comparison: 11/28/2018 Technique: Axial noncontrast images with coronal and sagittal reformats. Dose reduction procedures were used with mA/kv adjusted for body size. Findings: The ventricles, cortical sulci, and other CSF spaces are enlarged consistent with generalized atrophy likely age related. There is decreased attenuation in the periventricular white matter suggestive of small vessel vascular disease. There are no areas of abnormal attenuation to suggest recent or remote CVA, hemorrhage, mass lesion, or extra-axial fluid collection. The visualized sinuses are clear. The calvarium is intact. IMPRESSION: No acute intracranial abnormality Generalized atrophy likely age related and unchanged Small vessel disease also unchanged Reported By:
[2019-01-01] MEDS ORDERED: ZOFRAN TAB 4 MG PO PRN (08:24)
[2019-01-01] MEDS ORDERED: NORCO 5/325 MG TAB PO PRN (08:24)
[2019-01-01] MEDS ORDERED: TOPROL XL ONE (09:39)
[2019-01-01] MEDS: TOPROL XL PO SCH (09:47)
[2019-01-01] MEDS: SYNTHROID 125 mcg TAB PO SCH (09:48)
[2019-01-01] MEDS: NEURONTIN CAP 400 MG PO SCH ×4 (09:48→20:12)
[2019-01-01] MEDS: COLACE CAP 100 MG PO SCH ×2 (09:48→20:12)
[2019-01-01] MEDS: MOBIC TAB 15 MG PO SCH (09:50)
[2019-01-01] MEDS: MIRALAX POWDER (255 GRAMS BTL) PO SCH ×2 (09:50→20:12)
[2019-01-01] MEDS: NS 1000 ML 1,000 ML IV SCH ×2 (09:54→15:44)
[2019-01-01] MEDS ORDERED: PHARMACY CONSULT - DOSE _____ XX SCH (10:00)
--- NOTE | 2019-01-01 12:03 | DR.H&P ---
H&P - History & Physical for Day of: H&P Date: 12/31/18 - Chief Complaint Chief Complaint: CONFUSION, AMS - History of Present Illness History of Present Illness: 73 WF DIRECT ADMIT FROM [facility] WITH CONFUSION AND INCREASED AGITATION. PT HAD ADMISSION LABS WITH UTI AND CT HEAD R/O ACUTE CVA IT WAS STABLE. PT HAS PMH OF HTN, OA, VASCULAR DEMENTIA. PT ADMITTED FOR TREATMENT AND EVALUATION OF ACUTE ILLNESS. - Past Medical History Past Medical History: Anxiety, Arthritis, COPD, Hypertension, Hypothyroidism - Past Surgical History Surgical History: Appendectomy, Hysterectomy, Tonsillectomy, Other - Social History Does patient currently use any type of tobacco product: No Have you used tobacco products in the last 12 months: No Type of Tobacco Use: None Does any household member use tobacco: No Alcohol Use: None Drug Use: None - Medications Home Medications: codeine Allergy (Verified 11/28/18 00:06) Penicillins Allergy (Verified 11/28/18 00:06) CONTINUE taking the following medications docusate sodium [Colace] 100 mg PO BID 12/31/18 [History] gabapentin [Neurontin] 400 mg PO QID 12/31/18 [History] hydrocodone-acetaminophen [[place]] 1 tab PO BID PRN 12/31/18 [History] levothyroxine [Synthroid] 125 mcg PO DAILY 12/31/18 [History] metoprolol succinate [Toprol XL] 100 mg PO DAILY 12/31/18 [History] ondansetron HCl [Zofran] 4 mg PO Q4H PRN 12/31/18 [History] polyethylene glycol 3350 [Miralax] 17 g PO BID 12/31/18 [History] - Review of Systems Constitutional: Weakness Eyes: No Symptoms Reported ENT: No Symptoms Reported Respiratory: Wheezing Cardiovascular: No Symptoms Reported Gastrointestinal: No Symptoms Reported Genitourinary: No Symptoms Reported Musculoskeletal: No Symptoms Reported Skin: No Symptoms Reported Neurological: Weakness, Confusion. denies: Numbness, Incoordination, Change in Speech - Physical Exam Vital Signs: Temperature 97.9 F Pulse Rate [Right Brachial] 62 Respiratory Rate 18 Blood Pressure [Right Arm] 123/67 Blood Pressure [Left Arm] 148/82 Blood Pressure 131/77 O2 Sat by Pulse Oximetry 96 Oriented: Person Eyes: Normal Ear: Normal Nose: Normal Throat: Normal Respiratory: RLL Diminished, LLL Diminished Cardiovascular: Normal. negative: Edema : Normal Auscultation: Bowel Sounds: Normal Palpation: Normal Tenderness: Normal Skin: Decreased Turgur Musculoskeletal: Back:Lumbar Psychiatric: Anxiety Mood Description: Anxious Affect: Anxious Speech Pattern: Clear - Assessment/Plan (1) Altered mental status Qualifiers: Altered mental status type: transient alteration of awareness Qualified Code(s): R40.4 - Transient alteration of awareness Status: Acute Plan: ADMIT, CT HEAD ON ADMISSION. RESP CONSULT, CXR ON ADMISSION. VERIFY HOME MEDICATIONS. UC AND BLOOD CULTURES ON ADMISSION. IV ROCEPHIN, IV HYDRATION, NEURO CHECKS (2) UTI (urinary tract infection) Status: Acute (3) COPD exacerbation Status: Acute - Allergies Allergies/Adverse Reactions: Allergies Allergy/AdvReac Type Severity Reaction Status Date / Time codeine Allergy Verified 11/28/18 00:06 Penicillins Allergy Verified 11/28/18 00:06
--- NOTE | 2019-01-01 12:14 | PCM.PROG ---
Progress Note - Progress Note for Day of Date of Exam: 01/01/19 - Subjective Subjective: 73 WF DIRECT ADMIT FROM [facility] WITH CONFUSION. PT HAD CT HEAD ON ADMISSION R/O ACUTE CVA WITH NO ACUTE FINDINGS. PT HAD UTI, UC AND BC PENDING. PT IS CURRENTLY ON IV ROCEPHIN. PT ALERT AND AWAKE THIS AM, STATES SHE DOES NOT REMEMBER BEING CONFUSED. PT HAD ABNORMAL CXR, CT CHEST ORDERED WITH CONTRAST. CONTINUE TO ENCOURAGE ORAL HYDRATION. - Past Medical Family Social History Past Med/Fam/Surg Hx: No changes since H&P Allergies: Allergies codeine Allergy (Verified 11/28/18 00:06) Penicillins Allergy (Verified 11/28/18 00:06) - Review of Systems ROS: No change since H&P - Vital Signs and I&O's Vital Signs: Temperature 97.9 F Pulse Rate [Right Brachial] 62 Respiratory Rate 18 Blood Pressure [Right Arm] 123/67 Blood Pressure [Left Arm] 148/82 Blood Pressure 131/77 O2 Sat by Pulse Oximetry 96 Intake and Output: Intake & Output 12/30/18 12/31/18 01/01/19 01/02/19 11:59 11:59 11:59 11:59 Intake Total 220 / 220 Balance 220 / 220 - Physical Exam Oriented: Person Eyes: Normal Ear: Normal Nose: Normal Throat: Normal Respiratory: Diminished Cardiovascular: Normal. negative: Edema : Normal Auscultation: Bowel Sounds: Normal Tenderness: Normal Skin: Decreased Turgur Musculoskeletal: Back:Lumbar Psychiatric: Anxiety Mood Description: Anxious Affect: Anxious Speech Pattern: Clear - Laboratory and Diagnostics Result Diagrams: 01/01/19 04:46 01/01/19 04:46 Labs: Laboratory WBC 5.0 X10^3/uL (3.6-10.0) 01/01/19 04:46 RBC 3.48 X10^6/uL (3.5-5.4) L 01/01/19 04:46 Hgb 11.5 g/dL (12.0-16.0) L 01/01/19 04:46 Hct 34.3 % (36.0-47.0) L 01/01/19 04:46 MCV 98.4 fL (80.0-100.0) 01/01/19 04:46 MCH 33.1 pg (27.0-34.0) 01/01/19 04:46 MCHC 33.6 g/dL (33.0-35.0) 01/01/19 04:46 RDW 13.2 % (11.6-16.5) 01/01/19 04:46 Plt Count 253 X10^3/uL (150.0-450.0) 01/01/19 04:46 MPV 7.6 fL (7.4-11.0) 01/01/19 04:46 Neut % (Auto) 53.8 % (42.0-75.0) 01/01/19 04:46 Lymph % (Auto) 28.1 % (21.0-51.0) 01/01/19 04:46 [place] % (Auto) 10.7 % (0.0-13.0) 01/01/19 04:46 Eos % (Auto) 5.6 % (0.9-2.9) H 01/01/19 04:46 Baso % (Auto) 1.8 % (0.2-1.0) H 01/01/19 04:46 Neut # (Auto) 2.7 x10^3/uL (2.2-4.8) 01/01/19 04:46 Lymph # (Auto) 1.4 X10^3/uL (1.3-2.9) 01/01/19 04:46 [place] # (Auto) 0.5 x10^3/uL (0.3-0.8) 01/01/19 04:46 Eos # (Auto) 0.3 x10^3/uL (0.0-0.2) H 01/01/19 04:46 Baso # (Auto) 0.1 X10^3/uL (0.0-0.1) 01/01/19 04:46 Absolute Nucleated RBC 0.1 /100WBC 01/01/19 04:46 Sodium 140 mmol/L (136-145) 01/01/19 04:46 Corrected Sodium TNP 01/01/19 04:46 Potassium 4.0 mmol/L (3.5-5.1) 01/01/19 04:46 Chloride 105 mmol/L (98-107) 01/01/19 04:46 Carbon Dioxide 25.1 mmol/L (21-32) 01/01/19 04:46 BUN 33 mg/dL (7-18) H 01/01/19 04:46 Creatinine 0.89 mg/dL (0.55-1.02) 01/01/19 04:46 Est GFR (MDRD) Af Amer > 60 (>60) 01/01/19 04:46 Est GFR (MDRD) Non-Af > 60 (>60) 01/01/19 04:46 Glucose 96 mg/dL (65-99) 01/01/19 04:46 Calcium 8.7 mg/dL (8.5-10.1) 01/01/19 04:46 Corrected Calcium 9.5 mg/dL (8.5-10.1) 01/01/19 04:46 Total Bilirubin 0.30 mg/dL (0.2-1.0) 01/01/19 04:46 AST 13 Units/L (15-37) L 01/01/19 04:46 ALT 7 Units/L (12-78) L 01/01/19 04:46 Alkaline Phosphatase 86 Units/L (46-116) 01/01/19 04:46 Total Protein 6.2 g/dL (6.4-8.2) L 01/01/19 04:46 Albumin 3.0 g/dL (3.4-5.0) L 01/01/19 04:46 Globulin 3.2 g/dL (2.5-4.5) 01/01/19 04:46 Albumin/Globulin Ratio 0.9 Ratio (1.1-2.1) L 01/01/19 04:46 Specimen Type Catherized urine 01/01/19 00:10 Urine Color Pale yellow (YELLOW) 01/01/19 00:10 Urine Appearance Clear (CLEAR) 01/01/19 00:10 Urine pH 5.0 (5.0 - 8.0) 01/01/19 00:10 Ur Specific [place] 1.015 (1.000-1.030) 01/01/19 00:10 Urine Protein 1+ (NEGATIVE) 01/01/19 00:10 Urine Glucose (UA) Negative (NEGATIVE) 01/01/19 00:10 Urine Ketones Negative (NEGATIVE) 01/01/19 00:10 Urine Occult Blood Negative (NEGATIVE) 01/01/19 00:10 Urine Nitrite Positive (NEGATIVE) 01/01/19 00:10 Urine Bilirubin Negative (NEGATIVE) 01/01/19 00:10 Urine Urobilinogen Normal (NORMAL) 01/01/19 00:10 Ur Leukocyte Esterase 1+ (NEGATIVE) 01/01/19 00:10 Urine RBC None seen /HPF (NONE SEEN) 01/01/19 00:10 Urine WBC 0-2 /HPF (NONE SEEN) 01/01/19 00:10 Ur Squamous Epith Cells Rare /HPF (NEGATIVE) 01/01/19 00:10 Urine Bacteria 2+ /HPF (NEGATIVE) 01/01/19 00:10 Ur Culture Indicated? Yes/culture set up 01/01/19 00:10 - Plan (1) Altered mental status Status: Acute Qualifiers: Altered mental status type: transient alteration of awareness Qualified Code(s): R40.4 - Transient alteration of awareness Plan: CT HEAD ON ADMISSION, AM LABS. RESP CONSULT, CXR ON ADMISSION, CT CHEST ORDERED FOR TODAY. VERIFY HOME MEDICATIONS. UC AND BLOOD CULTURES ON ADMISSION. IV ROCEPHIN, IV HYDRATION, NEURO CHECKS (2) UTI (urinary tract infection) Status: Acute (3) COPD exacerbation Status: Acute (4) Abnormality of lung on CXR Status: Acute Plan: CT CHEST WITH IV CONTRAST
[2019-01-01 12:39] LABS: FREE T4 (FREE THYROXINE) 1.27 ng/dL (0.76-1.46); TSH (3RD GENERATION) 2.382 uIU/mL (0.358-3.74)
--- NOTE | 2019-01-01 13:35 | CT ---
HISTORY: Right upper lobe nodule, follow-up abnormal chest x-ray Study: CT chest with contrast Comparison: Plain films same date Technique: Axial post-contrast images with coronal and sagittal reformats. Dose reduction procedures were used with mA/kv adjusted for body size. Findings: Examination of the mediastinum demonstrated no evidence for mediastinal masses, enlarged mediastinal or enlarged hilar adenopathy, or pleural effusions. Calcific atherosclerotic changes present in the thoracic aorta. Coronary artery calcifications are present. The thoracic aorta is ectatic and mildly dilated maximum AP diameter 3.8 cm, maximum transverse diameter 4.25 cm. The patient has bilateral breast implants both having the appearance of possible intracapsular rupture. No other chest wall or axillary abnormality is identified. Those portions of the upper abdominal organs visualized were within normal limits with the exception of a 4 mm left upper pole renal calculus and a partially visualized infrarenal abdominal aortic aneurysm demonstrating a maximum AP diameter of 3.9 cm maximum transverse diameter of 4.9cm. CTA of the abdomen pelvis is recommended for further evaluation. Examination of the lung sellers demonstrated no significant nodules infiltrates or masses. No areas of consolidation, peribronchial thickening, or bronchiectasis is identified. There are mild changes of centrilobular emphysema in the upper lobes. Right upper lobe pulmonary nodule is not confirmed. IMPRESSION: Right upper lobe pulmonary nodule not confirmed Mild changes of centrilobular emphysema in the upper lobes bilaterally Focal mild dilatation of the distal thoracic aorta measuring approximately 4.25 x 3.8 cm Partially visualized and significantly larger infrarenal abdominal aortic aneurysm maximum diameter 4.9 cm. Further evaluation with CTA of the abdomen and pelvis is recommended complete visualization of this aneurysm. Reported By:
--- NOTE | 2019-01-01 15:53 | MRI ---
MRI BRAIN WITHOUT AND WITH CONTRAST CLINICAL HISTORY: 73-year-old female with altered mental status and dizziness. COMPARISON: CT head this date. TECHNIQUE: Multiplanar, multisequence MR images of the brain were obtained prior to and following the uneventful intravenous administration of 10 mL MultiHance. FINDINGS: Study is limited secondary to patient motion, specifically T1 sagittal and postcontrast imaging sequences. There is no evidence of diffusion restriction. The craniocervical junction is normal. Pituitary and optic nerve complex are normal. Multifocal confluent and punctate T2 FLAIR signal hyperintensities are present within the subcortical, juxtacortical, periventricular and supraventricular white matter that are nonspecific in appearance but most likely to represent microvascular white matter ischemic changes. Chronic lacunar infarctions with small volume encephalomalacia bilateral basal ganglia. Normal signal characteristics and morphology are demonstrated within the cerebral cortex, corpus callosum, brainstem and cerebellum. The major vascular flow voids, to include the dural venous sinuses, are intact. No abnormal susceptibility on gradient imaging. Age advanced cortical volume loss is present, with commensurate sulcal and ventricular prominence. The basilar cisterns are normal. There is no evidence of abnormal intracranial enhancement. Cystic left parafalcine structure follows CSF on all sequences and is likely arachnoid cyst. The orbits and globes are within normal limits. Trace mucosal thickening of the right frontal sinus and anterior ethmoid air cells with the remaining imaged paranasal sinuses, mastoid air cells tympanic cavities clear. IMPRESSION: 1. No acute ischemic or hemorrhagic insult. 2. No abnormal intracranial enhancement. 3. Moderate, chronic microvascular white matter ischemic disease with associated volume loss. 4. Left parafalcine cystic structure likely arachnoid cyst. Reported By:
[2019-01-01] MEDS ORDERED: LEXAPRO ONE (18:22)
[2019-01-01] MEDS: LEXAPRO PO SCH (18:34)
[2019-01-02 06:07] LABS: BASOPHILS # (AUTO) 0.1 X10^3/uL (0.0-0.1); EOSINOPHILS # (AUTO) 0.3 x10^3/uL (0.0-0.2); EOSINOPHILS % (AUTO) 4.6 % (0.9-2.9); HEMATOCRIT 35.1 % (36.0-47.0); HEMOGLOBIN 11.9 g/dL (12.0-16.0); LYMPHOCYTES # (AUTO) 1.5 X10^3/uL (1.3-2.9); LYMPHOCYTES % (AUTO) 24.2 % (21.0-51.0); MEAN CORPUSCULAR HEMOGLOBIN 33.1 pg (27.0-34.0); MEAN CORPUSCULAR HGB CONC 33.8 g/dL (33.0-35.0); MEAN CORPUSCULAR VOLUME 97.7 fL (80.0-100.0); MEAN PLATELET VOLUME 7.3 fL (7.4-11.0); MONOCYTES # (AUTO) 0.6 x10^3/uL (0.3-0.8); MONOCYTES % (AUTO) 9.7 % (0.0-13.0); NEUTROPHILS # (AUTO) 3.6 x10^3/uL (2.2-4.8); NEUTROPHILS % (AUTO) 59.5 % (42.0-75.0); PLATELET COUNT 266 X10^3/uL (150.0-450.0); RED BLOOD COUNT 3.59 X10^6/uL (3.5-5.4); RED CELL DISTRIBUTION WIDTH 13.1 % (11.6-16.5); WHITE BLOOD COUNT 6.1 X10^3/uL (3.6-10.0)
[2019-01-02 06:18] LABS: ALANINE AMINOTRANSFERASE 7 Units/L (12-78); ALBUMIN 3.5 g/dL (3.4-5.0); ALKALINE PHOSPHATASE 101 Units/L (46-116); ASPARTATE AMINO TRANSFERASE 15 Units/L (15-37); BLOOD UREA NITROGEN 25 mg/dL (7-18); CALCIUM 8.9 mg/dL (8.5-10.1); CHLORIDE 104 mmol/L (98-107); CREATININE 0.75 mg/dL (0.55-1.02); SODIUM 139 mmol/L (136-145); eGFR NON BLACK RACES > 60 (>60)
[2019-01-02] MEDS ORDERED: TOPROL XL ONE (07:33)
[2019-01-02] MEDS ORDERED: LEXAPRO ONE (07:33)
[2019-01-02] MEDS: COLACE CAP 100 MG PO SCH ×2 (08:19→20:15)
[2019-01-02] MEDS: TOPROL XL PO SCH (08:19)
[2019-01-02] MEDS: MOBIC TAB 15 MG PO SCH (08:19)
[2019-01-02] MEDS: MIRALAX POWDER (255 GRAMS BTL) PO SCH ×2 (08:19→20:16)
[2019-01-02] MEDS: LEXAPRO PO SCH (08:19)
[2019-01-02] MEDS: ROCEPHIN VIAL 1 GRAM IVP SCH (08:20)
[2019-01-02] MEDS: SYNTHROID 125 mcg TAB PO SCH (08:20)
[2019-01-02] MEDS: NEURONTIN CAP 400 MG PO SCH ×4 (08:20→20:14)
[2019-01-02] MEDS ORDERED: LOVENOX INJ 40 MG SYR SC SCH (09:00)
[2019-01-02] MEDS: NS 1000 ML 1,000 ML IV SCH (11:49)
--- NOTE | 2019-01-02 15:04 | CT ---
History: Aortic aneurysm Study: CTA chest abdomen and pelvis without and then with Omnipaque 350 IV contrast. Sagittal and coronal reformations were provided. Sagittal and coronal and axial MIPS were provided. Three-dimensional MIPS were displayed of the aorta in multiple degrees of obliquity. Dose reduction techniques were utilized Findings: There is aneurysmal dilatation of the abdominal aorta originating just below the renal arteries and measuring approximately 9.5 cm sagittal length and up to 4.9 no mediastinal or retroperitoneal adenopathy cm AP diameter. There is mural thrombus. The opacified lumen of the aorta measures up to 2.5 cm diameter. The iliac arteries are patent without aneurysm. There is extensive atherosclerotic calcification. The distal thoracic aorta measures up to nearly 4 cm maximum diameter. The ascending aorta measures up to 3.86 cm diameter. There is no pulmonary embolus. There is a focal prominent plaque in the medial descending thoracic aorta. No dissection is demonstrated however. There is minimal streaky scarring at the apex of the right lung. There is centrilobular emphysema. No mediastinal or retroperitoneal adenopathy is demonstrated. The gallbladder is unremarkable. There are calcified granulomas in the spleen. There is a small hiatal hernia. The pancreas is unremarkable. There are multiple small bilateral renal calculi. There is no hydronephrosis. There is central depression of the superior endplate of L3 resembling a spirals node. There are diffuse degenerative changes in the spine. There is severe L3-4 disc space narrowing. There is sigmoid diverticulosis. Impression: 1. Dilated descending thoracic aorta up to 4 cm diameter. 2. Aneurysmal dilatation of the abdominal aorta below the renal arteries up to 4.9 cm diameter. 3. Centrilobular emphysema Reported By:
--- NOTE | 2019-01-02 17:51 | PCM.PROG ---
Progress Note - Progress Note for Day of Date of Exam: 01/02/19 - Subjective Subjective: 73 WF DIRECT ADMIT FROM [facility] WITH CONFUSION. PT HAD CT HEAD ON ADMISSION R/O ACUTE CVA WITH NO ACUTE FINDINGS. PT HAD UTI, UC AND BC COLLECTED ON ADMISSION. PT IS CURRENTLY ON IV ROCEPHIN. URINE CULTURE. PRELIMINARY CULTURE +GRAM - RODS, PT STATED ON CIPRO. PT ALERT AND AWAKE THIS AM, STATES SHE DOES NOT REMEMBER BEING CONFUSED. PT HAD ABNORMAL CXR, CT CHEST OBTAINED WITH PULMONARY NODULE. CT AORTA WITH RUN OFF TO EVALUATE ANEURYSM. CONTINUE TO ENCOURAGE ORAL HYDRATION. - Past Medical Family Social History Past Med/Fam/Surg Hx: No changes since H&P Allergies: Allergies codeine Allergy (Verified 11/28/18 00:06) Penicillins Allergy (Verified 11/28/18 00:06) - Review of Systems ROS: No change since H&P - Vital Signs and I&O's Vital Signs: Temperature 98.0 F Pulse Rate [Right Brachial] 60 Respiratory Rate 20 Blood Pressure [Right Arm] 154/79 Blood Pressure [Left Arm] 148/82 Blood Pressure 131/77 O2 Sat by Pulse Oximetry 95 Intake and Output: Intake & Output 12/31/18 01/01/19 01/02/19 01/03/19 11:59 11:59 11:59 11:59 Intake Total 220 / 220 1130 / 1130 240 / 240 Balance 220 / 220 1130 / 1130 240 / 240 - Physical Exam Oriented: Person Eyes: Normal Ear: Normal Nose: Normal Throat: Normal Respiratory: Diminished Cardiovascular: Normal. negative: Edema : Normal Auscultation: Bowel Sounds: Normal Tenderness: Normal Skin: Decreased Turgur Musculoskeletal: Back:Lumbar Psychiatric: Anxiety Mood Description: Calm Affect: Anxious Speech Pattern: Clear, Appropriate - Laboratory and Diagnostics Result Diagrams: 01/02/19 05:30 01/02/19 05:30 Labs: 01/01/19 00:10 Urine,Clean Catch Urine Culture - Preliminary Laboratory WBC 6.1 X10^3/uL (3.6-10.0) 01/02/19 05:30 RBC 3.59 X10^6/uL (3.5-5.4) 01/02/19 05:30 Hgb 11.9 g/dL (12.0-16.0) L 01/02/19 05:30 Hct 35.1 % (36.0-47.0) L 01/02/19 05:30 MCV 97.7 fL (80.0-100.0) 01/02/19 05:30 MCH 33.1 pg (27.0-34.0) 01/02/19 05:30 MCHC 33.8 g/dL (33.0-35.0) 01/02/19 05:30 RDW 13.1 % (11.6-16.5) 01/02/19 05:30 Plt Count 266 X10^3/uL (150.0-450.0) 01/02/19 05:30 MPV 7.3 fL (7.4-11.0) L 01/02/19 05:30 Neut % (Auto) 59.5 % (42.0-75.0) 01/02/19 05:30 Lymph % (Auto) 24.2 % (21.0-51.0) 01/02/19 05:30 Wilcox % (Auto) 9.7 % (0.0-13.0) 01/02/19 05:30 Eos % (Auto) 4.6 % (0.9-2.9) H 01/02/19 05:30 Baso % (Auto) 2.0 % (0.2-1.0) H 01/02/19 05:30 Neut # (Auto) 3.6 x10^3/uL (2.2-4.8) 01/02/19 05:30 Lymph # (Auto) 1.5 X10^3/uL (1.3-2.9) 01/02/19 05:30 Wilcox # (Auto) 0.6 x10^3/uL (0.3-0.8) 01/02/19 05:30 Eos # (Auto) 0.3 x10^3/uL (0.0-0.2) H 01/02/19 05:30 Baso # (Auto) 0.1 X10^3/uL (0.0-0.1) 01/02/19 05:30 Absolute Nucleated RBC 0.1 /100WBC 01/02/19 05:30 Sodium 139 mmol/L (136-145) 01/02/19 05:30 Corrected Sodium TNP 01/02/19 05:30 Potassium 4.2 mmol/L (3.5-5.1) 01/02/19 05:30 Chloride 104 mmol/L (98-107) 01/02/19 05:30 Carbon Dioxide 27.0 mmol/L (21-32) 01/02/19 05:30 BUN 25 mg/dL (7-18) H 01/02/19 05:30 Creatinine 0.75 mg/dL (0.55-1.02) 01/02/19 05:30 Est GFR (MDRD) Af Amer > 60 (>60) 01/02/19 05:30 Est GFR (MDRD) Non-Af > 60 (>60) 01/02/19 05:30 Glucose 96 mg/dL (65-99) 01/02/19 05:30 Calcium 8.9 mg/dL (8.5-10.1) 01/02/19 05:30 Corrected Calcium TNP 01/02/19 05:30 Total Bilirubin 0.20 mg/dL (0.2-1.0) 01/02/19 05:30 AST 15 Units/L (15-37) 01/02/19 05:30 ALT 7 Units/L (12-78) L 01/02/19 05:30 Alkaline Phosphatase 101 Units/L (46-116) 01/02/19 05:30 Total Protein 7.0 g/dL (6.4-8.2) 01/02/19 05:30 Albumin 3.5 g/dL (3.4-5.0) 01/02/19 05:30 Globulin 3.5 g/dL (2.5-4.5) 01/02/19 05:30 Albumin/Globulin Ratio 1.0 Ratio (1.1-2.1) L 01/02/19 05:30 Free T4 1.27 ng/dL (0.76-1.46) 01/01/19 04:46 TSH 3rd Generation 2.382 uIU/mL (0.358-3.74) 01/01/19 04:46 Specimen Type Catherized urine 01/01/19 00:10 Urine Color Pale yellow (YELLOW) 01/01/19 00:10 Urine Appearance Clear (CLEAR) 01/01/19 00:10 Urine pH 5.0 (5.0 - 8.0) 01/01/19 00:10 Ur Specific Pace 1.015 (1.000-1.030) 01/01/19 00:10 Urine Protein 1+ (NEGATIVE) 01/01/19 00:10 Urine Glucose (UA) Negative (NEGATIVE) 01/01/19 00:10 Urine Ketones Negative (NEGATIVE) 01/01/19 00:10 Urine Occult Blood Negative (NEGATIVE) 01/01/19 00:10 Urine Nitrite Positive (NEGATIVE) 01/01/19 00:10 Urine Bilirubin Negative (NEGATIVE) 01/01/19 00:10 Urine Urobilinogen Normal (NORMAL) 01/01/19 00:10 Ur Leukocyte Esterase 1+ (NEGATIVE) 01/01/19 00:10 Urine RBC None seen /HPF (NONE SEEN) 01/01/19 00:10 Urine WBC 0-2 /HPF (NONE SEEN) 01/01/19 00:10 Ur Squamous Epith Cells Rare /HPF (NEGATIVE) 01/01/19 00:10 Urine Bacteria 2+ /HPF (NEGATIVE) 01/01/19 00:10 Ur Culture Indicated? Yes/culture set up 01/01/19 00:10 - Plan (1) Altered mental status Status: Acute Qualifiers: Altered mental status type: transient alteration of awareness Qualified Code(s): R40.4 - Transient alteration of awareness Plan: CT HEAD ON ADMISSION, AM LABS. RESP CONSULT, CXR ON ADMISSION, CT CHEST OBTAINED AND CTA AORTA ORDERED FOR THIS AM, PT MAY EAT AFTER PROCEDURE. VERIFY HOME MEDICATIONS. UC AND BLOOD CULTURES ON ADMISSION. IV ROCEPHIN AND STARTED ON CIPRO TODAY. IV HYDRATION, NEURO CHECKS (2) UTI (urinary tract infection) Status: Acute (3) COPD exacerbation Status: Acute (4) Abnormality of lung on CXR Status: Acute Plan: CT CHEST WITH IV CONTRAST
[2019-01-02] MEDS ORDERED: CIPRO IV 400 MG PREMIX* 400 MG/200 ML IV.SOLN. IV SCH (18:00)
[2019-01-02] MEDS ORDERED: VISTARIL PO PRN (19:27)
[2019-01-02] MEDS ORDERED: RESTORIL CAP 15 MG PO PRN (19:27)
[2019-01-02] MEDS ORDERED: VISTARIL PO ONE (19:30)
[2019-01-02] MEDS: CIPRO IV 400 MG PREMIX* 400 MG/200 ML IV.SOLN. IV SCH (20:14)
[2019-01-03 05:48] LABS: BASOPHILS # (AUTO) 0.1 X10^3/uL (0.0-0.1); BASOPHILS % (AUTO) 2.1 % (0.2-1.0); EOSINOPHILS # (AUTO) 0.3 x10^3/uL (0.0-0.2); EOSINOPHILS % (AUTO) 5.1 % (0.9-2.9); HEMATOCRIT 34.9 % (36.0-47.0); LYMPHOCYTES # (AUTO) 1.1 X10^3/uL (1.3-2.9); LYMPHOCYTES % (AUTO) 20.2 % (21.0-51.0); MEAN CORPUSCULAR HEMOGLOBIN 33.5 pg (27.0-34.0); MEAN CORPUSCULAR HGB CONC 34.3 g/dL (33.0-35.0); MEAN CORPUSCULAR VOLUME 97.5 fL (80.0-100.0); MEAN PLATELET VOLUME 7.6 fL (7.4-11.0); MONOCYTES # (AUTO) 0.6 x10^3/uL (0.3-0.8); MONOCYTES % (AUTO) 10.8 % (0.0-13.0); NEUTROPHILS # (AUTO) 3.4 x10^3/uL (2.2-4.8); NEUTROPHILS % (AUTO) 61.8 % (42.0-75.0); PLATELET COUNT 278 X10^3/uL (150.0-450.0); RED BLOOD COUNT 3.58 X10^6/uL (3.5-5.4); RED CELL DISTRIBUTION WIDTH 13.1 % (11.6-16.5); WHITE BLOOD COUNT 5.6 X10^3/uL (3.6-10.0)
[2019-01-03 06:10] LABS: ALANINE AMINOTRANSFERASE 8 Units/L (12-78); ALBUMIN 3.3 g/dL (3.4-5.0); ALKALINE PHOSPHATASE 103 Units/L (46-116); ASPARTATE AMINO TRANSFERASE 15 Units/L (15-37); BLOOD UREA NITROGEN 17 mg/dL (7-18); CALCIUM 9.2 mg/dL (8.5-10.1); CARBON DIOXIDE 25.2 mmol/L (21-32); CHLORIDE 104 mmol/L (98-107); COR CA(FOR HYPOALB) 9.8 mg/dL (8.5-10.1); CREATININE 0.69 mg/dL (0.55-1.02); SODIUM 139 mmol/L (136-145); eGFR NON BLACK RACES > 60 (>60)
[2019-01-03] MEDS ORDERED: TOPROL XL ONE (08:11)
[2019-01-03] MEDS ORDERED: LEXAPRO ONE (08:11)
[2019-01-03] MEDS: CIPRO IV 400 MG PREMIX* 400 MG/200 ML IV.SOLN. IV SCH (08:21)
[2019-01-03] MEDS: MOBIC TAB 15 MG PO SCH (08:22)
[2019-01-03] MEDS: SYNTHROID 125 mcg TAB PO SCH (08:22)
[2019-01-03] MEDS: NEURONTIN CAP 400 MG PO SCH ×2 (08:22→13:26)
[2019-01-03] MEDS: ROCEPHIN VIAL 1 GRAM IVP SCH (08:22)
[2019-01-03] MEDS: TOPROL XL PO SCH (08:22)
[2019-01-03] MEDS: LEXAPRO PO SCH (08:23)
[2019-01-03] MEDS: MIRALAX POWDER (255 GRAMS BTL) PO SCH (10:00)
[2019-01-03] MEDS: COLACE CAP 100 MG PO SCH (10:00)
[2019-01-03 12:37] VITALS: BP 128/65
== END 2019-01-03 16:20 ==
LOC: MED/SURG → PREOBSVTOIN 20:07 → PREINTOOBSV 20:10
PROVIDERS: ADMIT Internal Medicine; ATTEND Internal Medicine
DX: J44.1 Chronic obstructive pulmonary disease with (acute) exacerbation; R40.4 Transient alteration of awareness; R91.8 Other nonspecific abnormal finding of lung field; I10 Essential (primary) hypertension; F41.8 Other specified anxiety disorders; N39.0 Urinary tract infection, site not specified; B96.1 Klebsiella pneumoniae [K. pneumoniae] as the cause of diseases classified elsewhere; E03.8 Other specified hypothyroidism; M19.90 Unspecified osteoarthritis, unspecified site
CPT/HCPCS: 36415; 70450; 70553; 71010; 71045; 71260; 71275; 74174; 80053; 81001; 84439; 84443; 85025; 87040; 87086; 87088; 87186; 96367; A4216; A4222; Q0177; G0378; J0696; J0744; J7030

== ENCOUNTER 2023-05-15 08:32 | Inpatient (IN) ==
[2023-05-15 10:52] VITALS: BMI 22.8
[2023-05-15 11:56] LABS: ABG BASE EXCESS 3.1 mmol/L (-2.0-2.0); ABG HCO3 31.3 mmol/L (22-26)
[2023-05-15 11:57] LABS: ABG ALLEN TEST POS
[2023-05-15] MEDS: NEURONTIN CAP 400 MG PO SCH ×3 (12:37→20:54)
--- NOTE | 2023-05-15 13:38 | DR.H&P ---
H&P History & Physical for Day of: H&P Date: 05/15/23 Chief Complaint Chief Complaint: AMS, SOB Allergies Allergies Allergy/AdvReac Type Severity Reaction Status Date / Time codeine Allergy Verified 11/28/18 00:06 Penicillins Allergy Verified 11/28/18 00:06 History of Present Illness History of Present Illness: PT IS 77WF, DIRECT ADMIT FROM [facility] WITH COPD EXACE RBATION AND LETHARGY. REPORT WAS GIVEN TO OUR NURSING STAFF FROM DETENTION THAT PT IS NORMALLY A/O X3. PT HAS PMH OF HTN, COPD, GERD, OA. PT HAD DIFFUSE WEAKNESS AND LETHARGIC ON ASSESSMENT DUE TO HYPOXIA. PT ADMITTED FOR TREATMENT AND EVALUATION OF ACUTE ILLNESS Past Medical History Past Medical History: Anxiety, Arthritis, COPD, Hypertension and Hypothyroidism Past Surgical History Surgical History: Appendectomy, Hysterectomy, Tonsillectomy and Other Social History Does patient currently use any type of tobacco product: No Have you used tobacco products in the last 12 months: No Type of Tobacco Use: None Does any household member use tobacco: No Alcohol Use: None Drug Use: None Medications Home Medications: Home Medications Medication Instructions Recorded Confirmed Type meloxicam 15 mg tablet 15 mg PO DAILY 11/28/18 05/15/23 History docusate sodium 100 mg capsule 100 mg PO BID 12/31/18 05/15/23 History (Colace) gabapentin 400 mg capsule 400 mg PO QID 12/31/18 05/15/23 History (Neurontin) levothyroxine 125 mcg tablet 125 mcg PO DAILY 12/31/18 05/15/23 History (Synthroid) metoprolol succinate 100 mg 50 mg PO DAILY 12/31/18 05/15/23 History tablet,extended release 24 hr (Toprol XL) polyethylene glycol 3350 17 17 g PO BID 12/31/18 05/15/23 History gram/dose oral powder (Miralax) pantoprazole 40 mg tablet,delayed 40 mg PO QDAY 05/15/23 05/15/23 History release Labs Labs: Laboratory Sample Site Rra 05/15/23 11:50 ABG pH 7.290 (7.35-7.45) L 05/15/23 11:50 ABG pCO2 65.0 mmHg (35.0-45.0) H* 05/15/23 11:50 ABG pO2 51.0 mmHg (80.0-100.0) L 05/15/23 11:50 ABG HCO3 31.3 mmol/L (22-26) H* 05/15/23 11:50 ABG O2 Saturation 81.0 % (90-100) L* 05/15/23 11:50 ABG Base Excess 3.1 mmol/L (-2.0-2.0) H 05/15/23 11:50 Aravind Test Pos 05/15/23 11:50 A-a Gradient 67.0 mmHg 05/15/23 11:50 FiO2 28.0 05/15/23 11:50 Blood Gas Comments Pt tierra well eb/kg 05/15/23 11:50 Review of Systems Constitutional: Weakness Eyes: No Symptoms Reported ENT: No Symptoms Reported Respiratory: Shortness of Breath, SOB with Excertion and Wheezing Cardiovascular: denies Edema Gastrointestinal: Other (POOR PO INTAKE) Genitourinary: No Symptoms Reported Musculoskeletal: No Symptoms Reported Skin: No Symptoms Reported Neurological: Weakness and Confusion Physical Exam Vital Signs: Vital Signs Temperature 98.1 F Pulse Rate [Left Radial] 89 Respiratory Rate 34 Blood Pressure [Right Arm] 138/71 O2 Sat by Pulse Oximetry 97 Oriented: Unable to test Eyes: Normal Ear: Normal Nose: Normal Throat: Dry Respiratory: Diminished Throughout Cardiovascular: Tachycardia : Normal Auscultation: Bowel Sounds: Decreased Palpation: Normal Tenderness: Normal Skin: Decreased Turgur Musculoskeletal: Motor Deficit Mood Description: Anxious Affect: Anxious Speech Pattern: Aphasic Assessment/Plan (1) Altered mental status: Qualifiers: Altered mental status type: transient alteration of awareness Qualified Code(s): R40.4 - Transient alteration of awareness Narrative Support Text: ADMIT, RESP CONSULT O2 SUPPLEMENT, BIPAP PRN ABG AND CXR ON ADMISSION SPUTUM CULTURE AND VIRAL RESP PANEL IV HYDRATION, IV ATBX ADMISSION LABS VERIFY HOME MEDICATION Status: Acute (2) COPD exacerbation: Status: Acute (3) UTI (urinary tract infection): Status: Acute
[2023-05-15] MEDS: DUONEB 0.5 MG/3 MG (3 mL) NEB SCH ×3 (13:40→20:41)
[2023-05-15] MEDS: SOLU-Medrol 125 MG VIAL IVP SCH ×2 (13:46→22:16)
[2023-05-15] MEDS: ROCEPHIN VIAL 1 GRAM 1 G in NS 100 ML IV 100 ML IV SCH (14:19)
[2023-05-15] MEDS: NS 1,000 ML IV 1,000 ML IV SCH (14:19)
[2023-05-15 16:41] LABS: BASOPHILS % (AUTO) 0.2 % (0.2-1.0); EOSINOPHILS % (AUTO) 0.1 % (0.9-2.9); HEMATOCRIT 42.1 % (36.0-47.0); HEMOGLOBIN 13.3 g/dL (12.0-16.0); LYMPHOCYTES # (AUTO) 0.5 X10^3/uL (1.3-2.9); LYMPHOCYTES % (AUTO) 3.5 % (21.0-51.0); MEAN CORPUSCULAR HEMOGLOBIN 28.9 pg (27.0-34.0); MEAN CORPUSCULAR HGB CONC 31.6 g/dL (33.0-35.0); MEAN CORPUSCULAR VOLUME 91.5 fL (80.0-100.0); MEAN PLATELET VOLUME 7.9 fL (7.4-11.0); MONOCYTES # (AUTO) 0.4 x10^3/uL (0.3-0.8); MONOCYTES % (AUTO) 2.6 % (0.0-13.0); NEUTROPHILS # (AUTO) 14.4 x10^3/uL (2.2-4.8); NEUTROPHILS % (AUTO) 93.6 % (42.0-75.0); PLATELET COUNT 329 X10^3/uL (150.0-450.0); RED CELL DISTRIBUTION WIDTH 15.6 % (11.6-16.5); WHITE BLOOD COUNT 15.4 X10^3/uL (3.6-10.0)
[2023-05-15 16:57] LABS: ALBUMIN 2.4 g/dL (3.4-5.0); CALCIUM 9.5 mg/dL (8.5-10.1); COR CA(FOR HYPOALB) 10.8 mg/dL (8.5-10.1); CREATININE 1.44 mg/dL (0.55-1.02); MAGNESIUM 1.9 mg/dL (2.0-2.9); POTASSIUM 4.8 mmol/L (3.5-5.1); TOTAL PROTEIN 7.4 g/dL (6.4-8.2)
[2023-05-15 16:58] LABS: BILIRUBIN,URINE NEGATIVE (NEGATIVE); BLOOD/HEMOGLOBIN,URINE NEGATIVE (NEGATIVE); GLUCOSE, URINE NEGATIVE (NEGATIVE); KETONES,URINE NEGATIVE (NEGATIVE); LEUKOCYTE ESTERASE ,URINE NEGATIVE (NEGATIVE); NITRITES,URINE NEGATIVE (NEGATIVE); PROTEIN,URINE 3+ (NEGATIVE); UROBILINOGEN,URINE NORMAL (NORMAL)
[2023-05-15 17:08] LABS: APPEARANCE,URINE SLIGHTLY HAZY (CLEAR); BACTERIA,URINE 3+ /HPF (NEGATIVE); COLOR,URINE YELLOW (YELLOW); RBC,URINE NONE SEEN /HPF (0-3); SQUAMOUS EPITHELIAL CELL,UR RARE /HPF (NEGATIVE)
[2023-05-15 17:09] LABS: GRANULAR CASTS,URINE FEW /LPF (NEGATIVE)
[2023-05-15 17:11] LABS: PLATELET MORPHOLOGY COMMENT NORMAL (NORMAL)
[2023-05-15] MEDS ORDERED: CONSULT PHARMACY - POTASSIUM & MAGNESIUM XX SCH (18:00)
[2023-05-15] MEDS ORDERED: MAG-OX TAB PO SCH (19:00)
[2023-05-15] MEDS ORDERED: PULMICORT NEB TX 0.5 MG NEB ONE (19:50)
[2023-05-15] MEDS: MAGNESIUM SULFATE 1 GRAM/100 mL PREMIX 1 G/100 ML BAG IV SCH ×2 (19:53→20:15)
[2023-05-15] MEDS: PULMICORT NEB TX 0.5 MG NEB SCH (20:41)
[2023-05-15] MEDS: COLACE CAP 100 MG PO SCH (20:53)
[2023-05-16] MEDS: DUONEB 0.5 MG/3 MG (3 mL) NEB SCH ×7 (00:21→21:00)
[2023-05-16] MEDS: NS 1,000 ML IV 1,000 ML IV SCH ×2 (05:22→20:07)
[2023-05-16 05:32] LABS: ABG BASE EXCESS 0.7 mmol/L (-2.0-2.0); ABG HCO3 28.7 mmol/L (22-26)
[2023-05-16 05:40] LABS: BASOPHILS % (AUTO) 0.1 % (0.2-1.0); HEMATOCRIT 39.9 % (36.0-47.0); HEMOGLOBIN 12.7 g/dL (12.0-16.0); LYMPHOCYTES # (AUTO) 0.5 X10^3/uL (1.3-2.9); LYMPHOCYTES % (AUTO) 4.5 % (21.0-51.0); MEAN CORPUSCULAR HEMOGLOBIN 29.1 pg (27.0-34.0); MEAN CORPUSCULAR HGB CONC 31.8 g/dL (33.0-35.0); MEAN CORPUSCULAR VOLUME 91.5 fL (80.0-100.0); MEAN PLATELET VOLUME 7.9 fL (7.4-11.0); MONOCYTES # (AUTO) 0.2 x10^3/uL (0.3-0.8); MONOCYTES % (AUTO) 1.7 % (0.0-13.0); NEUTROPHILS # (AUTO) 10.5 x10^3/uL (2.2-4.8); NEUTROPHILS % (AUTO) 93.7 % (42.0-75.0); PLATELET COUNT 350 X10^3/uL (150.0-450.0); RED BLOOD COUNT 4.36 X10^6/uL (3.5-5.4); RED CELL DISTRIBUTION WIDTH 15.5 % (11.6-16.5); WHITE BLOOD COUNT 11.2 X10^3/uL (3.6-10.0)
[2023-05-16] MEDS: SOLU-Medrol 125 MG VIAL IVP SCH ×3 (05:41→21:45)
[2023-05-16 05:50] LABS: ALBUMIN 2.1 g/dL (3.4-5.0); CALCIUM 9.2 mg/dL (8.5-10.1); CARBON DIOXIDE 28.2 mmol/L (21-32); COR CA(FOR HYPOALB) 10.7 mg/dL (8.5-10.1); CREATININE 1.95 mg/dL (0.55-1.02); POTASSIUM 4.9 mmol/L (3.5-5.1); TOTAL PROTEIN 6.8 g/dL (6.4-8.2)
[2023-05-16 06:00] LABS: APPEARANCE,URINE SLIGHTLY HAZY (CLEAR); COLOR,URINE DARK YELLOW (YELLOW)
[2023-05-16 06:01] LABS: BILIRUBIN,URINE NEGATIVE (NEGATIVE); BLOOD/HEMOGLOBIN,URINE 1+ (NEGATIVE); GLUCOSE, URINE NEGATIVE (NEGATIVE); KETONES,URINE NEGATIVE (NEGATIVE); LEUKOCYTE ESTERASE ,URINE NEGATIVE (NEGATIVE); NITRITES,URINE NEGATIVE (NEGATIVE); PROTEIN,URINE 2+ (NEGATIVE); RBC,URINE 0-2 /HPF (0-3); UROBILINOGEN,URINE NORMAL (NORMAL)
[2023-05-16 06:02] LABS: BACTERIA,URINE TRACE /HPF (NEGATIVE); SQUAMOUS EPITHELIAL CELL,UR RARE /HPF (NEGATIVE)
--- NOTE | 2023-05-16 06:33 | RAD ---
PROCEDURE: Chest X-ray 1 View .HISTORY: Dyspnea and COPD.TECHNIQUE: AP portable done at 1:55 p.m..COMPARISON: 03/21/2023.TECHNICAL QUALITY: Satisfactory .FINDINGS:Normal size heart .Mediastinum and hilar regions show no masses or lymphadenopathy. Tortuous aorta.Normal central vascularity .No pulmonary consolidation, masses, pleural fluid, or pneumothorax. Breast prostheses projected over midlung sellers bilaterally.No acute bony abnormality .IMPRESSION:No active cardiopulmonary disease .Electronically signed by: Buck Givens (May 16, 2023 06:31:31)
[2023-05-16 07:14] LABS: PLATELET MORPHOLOGY COMMENT NORMAL (NORMAL)
[2023-05-16] MEDS: PULMICORT NEB TX 0.5 MG NEB SCH ×2 (08:58→21:00)
[2023-05-16] MEDS ORDERED: PROTONIX TAB 40 MG PO SCH (09:00)
[2023-05-16] MEDS ORDERED: TOPROL XL PO ONE (09:57)
[2023-05-16] MEDS: ROCEPHIN VIAL 1 GRAM 1 G in NS 100 ML IV 100 ML IV SCH (10:01)
[2023-05-16] MEDS: PROTONIX INJ 40 MG VIAL IVP SCH (10:02)
[2023-05-16] MEDS: TOPROL XL PO SCH (10:02)
[2023-05-16] MEDS: NEURONTIN CAP 400 MG PO SCH ×4 (10:02→20:08)
[2023-05-16] MEDS: SYNTHROID 125 mcg TAB PO SCH (10:03)
[2023-05-16] MEDS: COLACE CAP 100 MG PO SCH ×2 (10:03→20:08)
[2023-05-17] MEDS: SOLU-Medrol 125 MG VIAL IVP SCH ×3 (05:07→21:03)
[2023-05-17] MEDS: DUONEB 0.5 MG/3 MG (3 mL) NEB SCH ×5 (05:15→20:23)
[2023-05-17 05:55] LABS: ALBUMIN 1.9 g/dL (3.4-5.0); CALCIUM 8.8 mg/dL (8.5-10.1); CARBON DIOXIDE 27.2 mmol/L (21-32); COR CA(FOR HYPOALB) 10.5 mg/dL (8.5-10.1); CREATININE 1.65 mg/dL (0.55-1.02); POTASSIUM 4.9 mmol/L (3.5-5.1); TOTAL PROTEIN 6.1 g/dL (6.4-8.2)
[2023-05-17 06:12] LABS: BASOPHILS % (AUTO) 0.2 % (0.2-1.0); HEMATOCRIT 35.9 % (36.0-47.0); HEMOGLOBIN 11.6 g/dL (12.0-16.0); LYMPHOCYTES # (AUTO) 0.5 X10^3/uL (1.3-2.9); LYMPHOCYTES % (AUTO) 5.2 % (21.0-51.0); MEAN CORPUSCULAR HEMOGLOBIN 29.4 pg (27.0-34.0); MEAN CORPUSCULAR HGB CONC 32.4 g/dL (33.0-35.0); MEAN CORPUSCULAR VOLUME 90.7 fL (80.0-100.0); MEAN PLATELET VOLUME 8.3 fL (7.4-11.0); MONOCYTES # (AUTO) 0.1 x10^3/uL (0.3-0.8); MONOCYTES % (AUTO) 1.3 % (0.0-13.0); NEUTROPHILS # (AUTO) 9.8 x10^3/uL (2.2-4.8); NEUTROPHILS % (AUTO) 93.3 % (42.0-75.0); PLATELET COUNT 304 X10^3/uL (150.0-450.0); RED BLOOD COUNT 3.96 X10^6/uL (3.5-5.4); RED CELL DISTRIBUTION WIDTH 15.6 % (11.6-16.5); WHITE BLOOD COUNT 10.5 X10^3/uL (3.6-10.0)
[2023-05-17 07:24] LABS: BAND NEUTROPHILS % 5 % (0-10); PLATELET MORPHOLOGY COMMENT NORMAL (NORMAL)
[2023-05-17] MEDS: PULMICORT NEB TX 0.5 MG NEB SCH ×2 (09:20→20:24)
[2023-05-17] MEDS ORDERED: TOPROL XL PO ONE (09:41)
[2023-05-17] MEDS: COLACE CAP 100 MG PO SCH ×2 (09:43→20:17)
[2023-05-17] MEDS: PROTONIX INJ 40 MG VIAL IVP SCH (09:43)
[2023-05-17] MEDS: SYNTHROID 125 mcg TAB PO SCH (09:43)
[2023-05-17] MEDS: NEURONTIN CAP 400 MG PO SCH ×4 (09:43→20:17)
[2023-05-17] MEDS: TOPROL XL PO SCH (09:44)
[2023-05-17] MEDS: ROCEPHIN VIAL 1 GRAM 1 G in NS 100 ML IV 100 ML IV SCH (09:45)
[2023-05-17] MEDS: NS 1,000 ML IV 1,000 ML IV SCH ×3 (10:37→22:20)
[2023-05-17] MEDS: LOVENOX INJ 30 MG SYR SC SCH (11:12)
[2023-05-18] MEDS: DUONEB 0.5 MG/3 MG (3 mL) NEB SCH ×6 (00:10→21:05)
[2023-05-18] MEDS: SOLU-Medrol 125 MG VIAL IVP SCH ×3 (05:10→22:23)
[2023-05-18 06:55] LABS: BASOPHILS % (AUTO) 0.2 % (0.2-1.0); HEMATOCRIT 34.8 % (36.0-47.0); HEMOGLOBIN 11.4 g/dL (12.0-16.0); LYMPHOCYTES # (AUTO) 0.4 X10^3/uL (1.3-2.9); LYMPHOCYTES % (AUTO) 5.9 % (21.0-51.0); MEAN CORPUSCULAR HEMOGLOBIN 29.7 pg (27.0-34.0); MEAN CORPUSCULAR HGB CONC 32.8 g/dL (33.0-35.0); MEAN CORPUSCULAR VOLUME 90.6 fL (80.0-100.0); MEAN PLATELET VOLUME 8.3 fL (7.4-11.0); MONOCYTES # (AUTO) 0.2 x10^3/uL (0.3-0.8); MONOCYTES % (AUTO) 3.5 % (0.0-13.0); NEUTROPHILS # (AUTO) 6.2 x10^3/uL (2.2-4.8); NEUTROPHILS % (AUTO) 90.4 % (42.0-75.0); PLATELET COUNT 254 X10^3/uL (150.0-450.0); RED BLOOD COUNT 3.84 X10^6/uL (3.5-5.4); RED CELL DISTRIBUTION WIDTH 15.5 % (11.6-16.5); WHITE BLOOD COUNT 6.9 X10^3/uL (3.6-10.0)
[2023-05-18 07:24] LABS: ALBUMIN 1.9 g/dL (3.4-5.0); CALCIUM 8.5 mg/dL (8.5-10.1); CARBON DIOXIDE 24.7 mmol/L (21-32); COR CA(FOR HYPOALB) 10.2 mg/dL (8.5-10.1); CREATININE 1.25 mg/dL (0.55-1.02); POTASSIUM 4.4 mmol/L (3.5-5.1); TOTAL PROTEIN 5.8 g/dL (6.4-8.2)
[2023-05-18 07:47] LABS: BAND NEUTROPHILS % 5 % (0-10); PLATELET MORPHOLOGY COMMENT NORMAL (NORMAL)
[2023-05-18] MEDS: PULMICORT NEB TX 0.5 MG NEB SCH ×2 (09:22→21:05)
[2023-05-18] MEDS ORDERED: TOPROL XL PO ONE (09:46)
[2023-05-18] MEDS: LOVENOX INJ 30 MG SYR SC SCH (10:01)
[2023-05-18] MEDS: COLACE CAP 100 MG PO SCH ×2 (10:01→20:39)
[2023-05-18] MEDS: ROCEPHIN VIAL 1 GRAM 1 G in NS 100 ML IV 100 ML IV SCH (10:01)
[2023-05-18] MEDS: NEURONTIN CAP 400 MG PO SCH ×4 (10:02→20:39)
[2023-05-18] MEDS: PROTONIX INJ 40 MG VIAL IVP SCH (10:02)
[2023-05-18] MEDS: SYNTHROID 125 mcg TAB PO SCH (10:02)
[2023-05-18] MEDS: TOPROL XL PO SCH (10:03)
[2023-05-18 11:08] LABS: ABG BASE EXCESS -0.1 mmol/L (-2.0-2.0); ABG HCO3 25.4 mmol/L (22-26)
[2023-05-18] MEDS: NS 1,000 ML IV 1,000 ML IV SCH (13:34)
--- NOTE | 2023-05-18 15:07 | RAD ---
EXAM:CHEST x-ray, 1 VIEWHISTORY:COPD, CHF, PNEUMONIA; [id number]:X-ray 05/15/2023.FINDINGS:There are probable vague bilateral lung infiltrates that were obscured due to technique on prior study. These may be chronic given appearance on CT of 03/19/2023. Consider possible atypical pneumonia such as mycoplasma or fungal infection. Chronic interstitial lung disease would be another possible etiology.Heart is normal in size there is dilation of the aortic arch as seen on prior studies. No pneumothorax or pleural effusion is seen.IMPRESSION:Vague bilateral lung infiltrates are probably unchanged. Please see further description above.Prominence of the aortic arch is unchanged.THIS IS AN ELECTRONICALLY VERIFIED FINAL REPORT05/18/2023 3:04 PM - Electronically signed by Mac Saleh MD
[2023-05-19] MEDS: DUONEB 0.5 MG/3 MG (3 mL) NEB SCH ×6 (00:55→20:20)
[2023-05-19] MEDS: NS 1,000 ML IV 1,000 ML IV SCH ×3 (03:00→23:51)
[2023-05-19] MEDS: SOLU-Medrol 125 MG VIAL IVP SCH ×3 (05:28→21:24)
[2023-05-19 06:28] LABS: HEMATOCRIT 34.5 % (36.0-47.0); HEMOGLOBIN 11.2 g/dL (12.0-16.0); LYMPHOCYTES # (AUTO) 0.4 X10^3/uL (1.3-2.9); MEAN CORPUSCULAR HGB CONC 32.3 g/dL (33.0-35.0); MONOCYTES # (AUTO) 0.3 x10^3/uL (0.3-0.8); NEUTROPHILS # (AUTO) 4.1 x10^3/uL (2.2-4.8); PLATELET COUNT 256 X10^3/uL (150.0-450.0); WHITE BLOOD COUNT 4.8 X10^3/uL (3.6-10.0)
[2023-05-19 06:40] LABS: BASOPHILS % (AUTO) 0.2 % (0.2-1.0); LYMPHOCYTES % (AUTO) 8.9 % (21.0-51.0); MEAN CORPUSCULAR HEMOGLOBIN 29.3 pg (27.0-34.0); MEAN CORPUSCULAR VOLUME 90.6 fL (80.0-100.0); MEAN PLATELET VOLUME 8.2 fL (7.4-11.0); MONOCYTES % (AUTO) 6.1 % (0.0-13.0); NEUTROPHILS % (AUTO) 84.8 % (42.0-75.0); RED BLOOD COUNT 3.81 X10^6/uL (3.5-5.4); RED CELL DISTRIBUTION WIDTH 15.6 % (11.6-16.5)
[2023-05-19 06:57] LABS: ALBUMIN 1.9 g/dL (3.4-5.0); CALCIUM 8.3 mg/dL (8.5-10.1); CARBON DIOXIDE 28.2 mmol/L (21-32); CREATININE 1.14 mg/dL (0.55-1.02); POTASSIUM 4.7 mmol/L (3.5-5.1); TOTAL PROTEIN 5.6 g/dL (6.4-8.2)
[2023-05-19] MEDS ORDERED: TOPROL XL PO ONE (08:15)
[2023-05-19] MEDS: PULMICORT NEB TX 0.5 MG NEB SCH ×2 (08:40→20:20)
[2023-05-19] MEDS: ROCEPHIN VIAL 1 GRAM 1 G in NS 100 ML IV 100 ML IV SCH (09:03)
[2023-05-19] MEDS: LOVENOX INJ 30 MG SYR SC SCH (09:06)
[2023-05-19] MEDS: COLACE CAP 100 MG PO SCH ×2 (09:06→20:45)
[2023-05-19] MEDS: PROTONIX INJ 40 MG VIAL IVP SCH (09:06)
[2023-05-19] MEDS: NEURONTIN CAP 400 MG PO SCH ×4 (09:06→20:45)
[2023-05-19] MEDS: TOPROL XL PO SCH (09:06)
[2023-05-19] MEDS: SYNTHROID 125 mcg TAB PO SCH (09:06)
[2023-05-19] MEDS ORDERED: ANTIVERT TAB 25 MG PO PRN (09:59)
--- NOTE | 2023-05-19 10:52 | RAD ---
EXAM:CHEST, 1 VIEWHISTORY:CHFCOMPARISON:05/18/2023 .br.br.br unremarkable. Improved aeration of the right and left lower lobes with residual airspace opacity scattered throughout the right and left hemithorax. The findings may be on the basis of resolving pneumonitis or pulmonary edema. Continued follow up complete resolution will be needed. The bony thorax is unremarkable.IMPRESSION:Improved aeration of the right and left base with residual airspace disease noted to be present. Continued follow up to complete resolution is recommended.THIS IS AN ELECTRONICALLY VERIFIED FINAL REPORT05/19/2023 10:40 AM - Electronically signed by Aiden Cho MD
--- NOTE | 2023-05-19 13:00 | CT ---
EXAM:CT brain without IV contrastHISTORY:DIZZINESS -COMPARISON:CT 03/19/2023TECHNIQUE:Multiple axial images of the brain were obtained without IV contrast. Dose reduction techniques including Automated Exposure Control (AEC) and adjustment of mA and kV were utilized.FINDINGS:There is opacification of the left mastoid air cells with probable mild fluid in the left middle ear. A similar appearance is seen on prior CT. Right mastoid air cells are mostly clear. Paranasal sinuses are clear. No evidence bone destruction is seen. No calvarial fracture is seen.No acute intracranial hemorrhage or mass effect is seen. There is prominent diffuse volume loss in the brain with compensatory enlargement of the ventricular system. No evidence of acute CVA. Moderate chronic small-vessel ischemic changes in the white matter and basal ganglia are similar to prior study.IMPRESSION:Moderate chronic small-vessel ischemic changes are seen without evidence of acute abnormality.THIS IS AN ELECTRONICALLY VERIFIED FINAL REPORT05/19/2023 12:57 PM - Electronically signed by Mac Saleh MD
[2023-05-19 21:53] VITALS: RESP 20
[2023-05-20] MEDS: SOLU-Medrol 125 MG VIAL IVP SCH ×2 (05:39→13:40)
[2023-05-20] MEDS: DUONEB 0.5 MG/3 MG (3 mL) NEB SCH ×2 (05:52→09:56)
[2023-05-20] MEDS: NS 1,000 ML IV 1,000 ML IV SCH (06:44)
[2023-05-20 07:05] LABS: BASOPHILS % (AUTO) 0.5 % (0.2-1.0); LYMPHOCYTES # (AUTO) 0.7 X10^3/uL (1.3-2.9); LYMPHOCYTES % (AUTO) 14.7 % (21.0-51.0); MEAN CORPUSCULAR HEMOGLOBIN 29.2 pg (27.0-34.0); MEAN CORPUSCULAR HGB CONC 32.3 g/dL (33.0-35.0); MEAN CORPUSCULAR VOLUME 90.5 fL (80.0-100.0); MEAN PLATELET VOLUME 7.7 fL (7.4-11.0); MONOCYTES # (AUTO) 0.2 x10^3/uL (0.3-0.8); NEUTROPHILS # (AUTO) 3.7 x10^3/uL (2.2-4.8); NEUTROPHILS % (AUTO) 79.8 % (42.0-75.0); PLATELET COUNT 256 X10^3/uL (150.0-450.0); RED BLOOD COUNT 4.09 X10^6/uL (3.5-5.4); RED CELL DISTRIBUTION WIDTH 15.2 % (11.6-16.5); WHITE BLOOD COUNT 4.6 X10^3/uL (3.6-10.0)
[2023-05-20 07:22] LABS: ALANINE AMINOTRANSFERASE 11 Units/L (12-78); ALBUMIN 1.9 g/dL (3.4-5.0); ALKALINE PHOSPHATASE 83 Units/L (46-116); ASPARTATE AMINO TRANSFERASE 14 Units/L (15-37); BLOOD UREA NITROGEN 23 mg/dL (7-18); CALCIUM 8.1 mg/dL (8.5-10.1); CARBON DIOXIDE 28.6 mmol/L (21-32); CHLORIDE 105 mmol/L (98-107); COR CA(FOR HYPOALB) 9.8 mg/dL (8.5-10.1); COR NA(FOR HYPERGLY) 140 mmol/L (136-145); CREATININE 0.88 mg/dL (0.55-1.02); GLUCOSE 143 mg/dL (65-99); POTASSIUM 4.6 mmol/L (3.5-5.1); SODIUM 139 mmol/L (136-145); TOTAL PROTEIN 5.6 g/dL (6.4-8.2); eGFR NON BLACK RACES > 60 (>60)
[2023-05-20] MEDS: NEURONTIN CAP 400 MG PO SCH ×2 (09:00→13:40)
[2023-05-20] MEDS: LOVENOX INJ 30 MG SYR SC SCH (09:00)
[2023-05-20] MEDS: ROCEPHIN VIAL 1 GRAM 1 G in NS 100 ML IV 100 ML IV SCH (09:00)
[2023-05-20] MEDS: COLACE CAP 100 MG PO SCH (09:00)
[2023-05-20] MEDS: PROTONIX INJ 40 MG VIAL IVP SCH (09:00)
[2023-05-20] MEDS: SYNTHROID 125 mcg TAB PO SCH (09:05)
[2023-05-20] MEDS ORDERED: TOPROL XL PO ONE (09:12)
[2023-05-20] MEDS: PULMICORT NEB TX 0.5 MG NEB SCH (09:56)
--- NOTE | 2023-05-20 09:58 | RAD ---
EXAM:CHEST, 1 VIEWHISTORY:CHOKING EPISODE, SOB; HTN, COPD, GB, APPENDIX, HYSTCOMPARISON:05/19/2023.TECHNIQUE: .br.br.br.br The cardiac and mediastinal contours are normal in size. Continued improvement in bilateral airspace opacities. Blunted left costophrenic sulcus. There is a left-sided pneumothorax with about 1.7 cm of pleural separation at the left apex.IMPRESSION:Small left hydropneumothorax.Mild improvement in bilateral airspace opacities may be due to pulmonary edema given history of CHF.THIS IS AN ELECTRONICALLY VERIFIED FINAL REPORT05/20/2023 9:55 AM - Electronically signed by Calvin Piña MD
[2023-05-20] MEDS: TOPROL XL PO SCH (11:09)
[2023-05-20 13:19] VITALS: BP 137/82; PULSE 82; TEMP 97.5; O2SAT 92
--- NOTE | 2023-05-20 14:24 | CT ---
EXAM:CHEST W/O CONHISTORY:LEFT HYDROPNEUMOTHORAX;COMPARISON:Chest radiograph 05/20/2023, CT chest 03/19/2023TECHNIQUE:Multiple CT axial images of the chest were obtained without IV contrast. Coronal and sagittal images were reconstructed. Dose reduction techniques included Automated Exposure Control (AEC) and adjustment of mA and kV.FINDINGS:The heart is normal in size. Atherosclerotic calcification is present in the coronary arteries. The pulmonary artery and aorta have a normal caliber. No mediastinal mass or significant lymphadenopathy.The thyroid has a normal size and configuration. No axillary mass or significant axillary lymphadenopathy is identified.Bilateral breast implants are present. "Linguine" sign suggests intracapsular rupture on both sides. But there is lobular contour around the perimeter of the left implant suggesting additional extracapsular rupture. But these findings are not changed from the prior study.Small left pleural effusion and trace right pleural effusion are present. These are both new since the prior CT. No pneumothorax is identified on either side.A few linear areas in the posterior lungs are present. More focal area of airspace opacity in the left lower lobe. These findings are likely atelectasis. Finding in the left lower lobe could be pneumonia also. These findings have progressed since the prior CT study.Partially calcified gallstones are present with no inflammation.Last image shows moderate dilatation of the aorta measuring up to 3.8 cm. This is incompletely imaged but may represent an aneurysm.Degenerative changes are present in the spine.IMPRESSION:1. No pneumothorax2. Bilateral atelectasis and effusions with possible left lower lobe pneumonia3. Possible abdominal aortic aneurysm incompletely imaged4. CholelithiasisTHIS IS AN ELECTRONICALLY VERIFIED FINAL REPORT05/20/2023 2:20 PM - Electronically signed by Anderson Perla MD
== END 2023-05-20 16:55 | DRG 190 ==
LOC: MED/SURG 09:39
PROVIDERS: ADMIT Internal Medicine; ATTEND Internal Medicine
DX: R53.1 Weakness; K21.9 Gastro-esophageal reflux disease without esophagitis; N28.9 Disorder of kidney and ureter, unspecified; J93.83 Other pneumothorax; I10 Essential (primary) hypertension; R06.02 Shortness of breath; R09.02 Hypoxemia; E03.8 Other specified hypothyroidism; J44.1 Chronic obstructive pulmonary disease with (acute) exacerbation; R42 Dizziness and giddiness; Z66 Do not resuscitate; R40.4 Transient alteration of awareness; E86.0 Dehydration; Z20.822 Contact with and (suspected) exposure to COVID-19; J18.8 Other pneumonia, unspecified organism; E83.42 Hypomagnesemia